=== PATIENT | female | born 1955 | race Caucasian/White ===

== ENCOUNTER 2018-11-28 21:16 | Inpatient (IN) ==
[2018-11-28] MEDS ORDERED: MORPHINE SULFATE 2 MG/1 ML IVP ONE (21:29)
[2018-11-28] MEDS ORDERED: Sodium Chloride 0.9% 1,000 ML PRIMARY IV ONE (21:29)
[2018-11-28 21:40] LABS: BASOPHILS # (AUTO) 0.02 10*3/UL; BASOPHILS % (AUTO) 0.1 % (0-1); EOSINOPHILS # (AUTO) 0.06 10*3/UL; EOSINOPHILS % (AUTO) 0.4 % (0-8); Hematocrit [HCT] 39.3 % (37.0-47.0); Hemoglobin [HGB] 12.9 g/dL (12.0-16.0); LYMPHOCYTES # (AUTO) 1.72 10*3/uL; MEAN CORPUSCULAR HGB CONC 32.8 g/dL (33-37); MEAN CORPUSCULAR VOLUME 97.5 FL (81-99); MEAN PLATELET VOLUME 9.9 FL (7.4-12.2); MONOCYTES # (AUTO) 0.58 10*3/UL (0.3-0.8); MONOCYTES % (AUTO) 4.1 % (5-15); NEUTROPHILS # (AUTO) 11.68 10*3/UL; NEUTROPHILS % (AUTO) 82.8 % (50-80); RED BLOOD COUNT 4.03 10^6/uL (4.20-5.40)
[2018-11-28 21:46] LABS: BUN/CREATININE RATIO 30.9 (6-20); SERUM ALBUMIN 4.5 g/dL (3.5-4.8)
[2018-11-28 21:48] LABS: PLATELET MORPHOLOGY COMMENT NORMAL MORPHOLOGY (NORM); RBC MORPHOLOGY COMMENT NORMAL MORPHOLOGY (NORM); WBC MORPHOLOGY COMMENT NORMAL MORPHOLOGY (NORM)
[2018-11-28] MEDS ORDERED: KETOROLAC 15 MG/1 ML VIAL IVP ONE (21:49)
--- NOTE | 2018-11-28 23:06 | DI ---
EXAM: XR Left Hip With Pelvis When Performed, 2 or 3 Views CLINICAL HISTORY: Trauma TECHNIQUE: Two or three views of the left hip, with pelvis when performed. COMPARISON: No relevant prior studies available. FINDINGS: Bones/joints: Mildly displaced mid left femoral neck fracture identified with mild angulation. The left femoral head remains in the acetabulum. The pelvic bones otherwise demonstrate no acute traumatic injury. Soft tissues: Unremarkable. IMPRESSION: Mildly displaced mid left femoral neck fracture identified with mild angulation. The femoral head remains in the acetabulum.
--- NOTE | 2018-11-28 23:07 | DI ---
EXAM: XR Left Femur, 2 Views CLINICAL HISTORY: Trauma TECHNIQUE: Frontal and lateral views of the left femur. COMPARISON: No relevant prior studies available. FINDINGS: Bones/joints: Mildly displaced mid left femoral neck fracture. The left femoral head remains in the acetabulum. The distal femur appears intact. No significant degenerative changes. No dislocation. Soft tissues: Unremarkable. IMPRESSION: Mildly displaced mid left femoral neck fracture. Otherwise negative.
[2018-11-28] MEDS ORDERED: HYDROcodone-APAP 5 MG -325 MG TABLET PO PRN (23:28)
[2018-11-28] MEDS ORDERED: DOCUSATE 100 MG CAPSULE PO PRN (23:28)
[2018-11-28] MEDS ORDERED: CALCIUM CARBONATE 500 MG (TUMS) CHEWABLE TABLET PO PRN (23:28)
[2018-11-28] MEDS ORDERED: ONDANSETRON 4 MG/2 ML VIAL IVP PRN (23:28)
[2018-11-28] MEDS ORDERED: ACETAMINOPHEN 325 MG TABLET PO PRN (23:28)
[2018-11-28] MEDS ORDERED: LIDOCAINE W/ SODIUM BICARB 0.5 ML SYR SUBD PRN (23:28)
[2018-11-29] MEDS: HYDROmorphone 2 MG/1 ML IVP PRN ×2 (00:17→08:22)
[2018-11-29] MEDS: Lactated Ringers 1,000 ML PRIMARY IV SCH ×4 (00:18→22:02)
--- NOTE | 2018-11-29 00:21 | PDOC ---
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 She states that she was on her barstool eating her dinner and she thinks that a screw was out of the barstool, and she fell down off the barstool and landed on her left hip and had immediate pain. She's not had this happen before. She came in by ambulance and had morphine on the way which controlled her pain to some degree, but she is in pain now. She was found to have a left hip fracture. It was a closed fracture. She denied any chest pain, shortness breath, or vomiting with these symptoms. She did have some nausea but stated Zofran did help. Patient states to me that she has no history of congestive heart failure, kidney problems, stroke, or anginal symptoms of chest pain or shortness of breath with exertion. She had a pacemaker placed as mentioned above. She states it was last interrogated in August and it was functioning normally. Her vitamin D level was last checked in 2013 on labs here, and it was low normal at that time so I will repeat that tomorrow morning. Orthopedics has been notified of the patient will see her in the morning. She did not lose consciousness with the fall or hit her head. Past Medical History Medical History: 1. Aortic aneurysm, ascending, has been stable in terms of size per patient. 2. Depression. 3. Osteopenia. 4. History of smoking, is on nicotine gum. 5. Recurrent acute sinusitis. 6. Sick sinus syndrome status post pacemaker ). 7. Primary osteoarthritis of both hands. 8. Patellar fracture, treated nonsurgically Surgical History: 1. Sinus surgery. 2. Status post cardiac pacemaker procedure (10/22/14). 3. Cholecystectomy. 4. Hysterectomy. 5. History of . 6. Tonsillectomy. 7. Bilateral varicose vein removal. 8. Right ankle hardware removal Pertinent Family History: Mother of multiple sclerosis. She states her father due to his "daily habits" Past Social History: Former smoker. Uses nicotine gum. Does not drink alcohol. . Has 2 adopted children and one biologic child that she describes all as healthy. 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 Tobacco Use: Former Smoker In the Past 12 Months, Have Used or Abuse Any of the Following Substance: None Alcohol Use: None Medication / Allergies Home Medications: Home Medications Medication Instructions Recorded Confirmed Type Calcium Carb/D3/Magnesium/Zinc [Sv 1 tbs PO QD tab 05/03/14 11/28/18 History Dsfzopi-Zse-Fjez-Vit D Cplt] Epinephrine [Epipen 2-Dick] 0.3 ml IM ONCE #2 unit 07/02/14 11/28/18 History Fluticasone Propionate [Flonase 2 spr NETTA DAILY PRN #1 bottle 02/18/15 11/28/18 History Allergy Relief] Imiquimod [Aldara] 1 applic TOPICAL PRN #15 pkg 01/17/16 11/28/18 History Ibuprofen [Motrin] 800 mg PO Q8H PRN #60 tab 03/09/16 11/28/18 Rx atenolol 25 mg tablet 25 mg PO BID tab 07/09/17 11/28/18 History estradiol 10 mcg vaginal tablet 10 mcg VAGINAL 2XW #24 tab 04/08/18 11/28/18 Rx bupropion HCl XL 150 mg 24 hr 150 mg PO QAM #30 tab 07/11/18 11/28/18 Rx tablet, extended release zaleplon 5 mg capsule 5 mg PO QHS PRN #90 tab 07/11/18 11/28/18 Rx pantoprazole 40 mg tablet,delayed 40 mg PO QDAY #30 tab 09/21/18 11/28/18 Rx release fluoxetine 20 mg capsule 20 mg PO QD #90 cap 09/29/18 11/28/18 Rx fluoxetine 40 mg capsule 40 mg PO DAILY #90 cap 09/29/18 11/28/18 Rx Allergies/Adverse Reactions: Allergies Allergy/AdvReac Type Severity Reaction Status Date / Time banana [Banana] Allergy Severe lips turn Verified 11/28/18 21:17 numb Cephalosporins Allergy Severe ANAPHLAXIS Verified 11/28/18 21:18 latex Allergy Severe RASH Verified 11/28/18 21:18 Penicillins Allergy Severe ANAPHLAXIS Verified 11/28/18 21:18 venom-honey bee Allergy Severe NOT Verified 11/28/18 21:18 APPLICABLE adhesive Allergy Intermediate RASH Verified 11/28/18 21:18 codeine Allergy Intermediate NOT Verified 11/28/18 21:18 APPLICABLE hydroxyzine HCl [From Atarax] Allergy Intermediate HIVES Verified 11/28/18 21:18 Review of Systems - Review of Systems All Systems: Reviewed & No Additional Complaints Except as Stated (I did a 12 point review systems and it was negative other than that discussed below and in the history of present illness.) - Genitourinary Genitourinary: REPORTS: Other (Patient states that it is common for her to get urinary tract infections after catheterization.) Exam - Vitals Vital Signs: Vital Signs Temperature 97.6 F Pulse Rate [Pulse Oximeter] 66 Pulse Rate 68 Respiratory Rate 18 Blood Pressure [Left Arm] 145/89 Blood Pressure 145/89 Pulse Ox 96 Oxygen Delivery Method Nasal Cannula Height 5 ft 4 in Weight 140 lb - General General Appearance: No Acute Distress, Cooperative - Head Head Exam: Normal Inspection, Normocephalic, Atraumatic - Eye Eye Exam: POSITIVE: Normal Appearance, EOMI, No Scleral Icterus - ENT ENT Exam: POSITIVE: Mucous Membranes Moist - Neck Neck Exam: Normal Inspection, No Tenderness, No Lymphadenopathy, No Thyromegaly, JVP is not Raised - Respiratory Respiratory Exam: POSITIVE: Clear to Auscultation - Bilaterally, Breathing Non Labored - Cardiovascular Cardiovascular Exam: POSITIVE: RRR, No Murmur, No Clicks, No Gallops, No Rubs, No JVD - GI/Abdominal GI/Abdominal Exam: POSITIVE: Normal Bowel Sounds, Non Tender, Non Distended, Soft - Rectal Rectal Exam: POSITIVE: Deferred - External Exam: POSITIVE: Deferred Exam: POSITIVE: Deferred - Extremities Extremities Exam: POSITIVE: No Clubbing Present, No Edema Present, No Cyanosis Present - Neurological Neurological Exam: POSITIVE: Alert, Oriented x 3, No Facial Droop, Speech Intact / Clear - Psychiatric Psychiatric Exam: POSITIVE: Normal Affect, Normal Mood Results - Labs CBC and BMP: 11/28/18 20:43 11/28/18 20:43 Additional Lab Results: Laboratory Results 11/28/18 11/28/18 11/28/18 20:43 20:43 20:43 WBC 14.11 H RBC 4.03 L Hgb 12.9 Hct 39.3 MCV 97.5 MCH 32.0 H MCHC 32.8 L RDW Std Deviation 44.9 RDW Coeff of Juan 12.7 Plt Count 264 MPV 9.9 Immature Gran % (Auto) 0.4 Neut % (Auto) 82.8 H Lymph % (Auto) 12.2 [place] % (Auto) 4.1 L Eos % (Auto) 0.4 Baso % (Auto) 0.1 Immature Gran # (Auto) 0.05 Neut # (Auto) 11.68 Lymph # (Auto) 1.72 [place] # (Auto) 0.58 Eos # (Auto) 0.06 Baso # (Auto) 0.02 WBC Morphology Comment Normal morphology Plt Morphology Comment Normal morphology RBC Morph Comment Normal morphology PT 10.5 INR 1.03 Sodium 142 Potassium 3.9 Chloride 106 Carbon Dioxide 26 Anion Gap 10 BUN 34 H Creatinine 1.1 Estimated GFR 50 BUN/Creatinine Ratio 30.90 H Glucose 106 Calculated Osmolality 301.0 H Calcium 10.6 Total Bilirubin 0.2 L AST 38 ALT 34 Alkaline Phosphatase 126 Total Protein 7.5 Albumin 4.5 Globulin 3.0 Albumin/Globulin Ratio 1.50 - EKG Data When Compared to Previous EKG(s) There Are: Other (I have ordered an EKG which is pending) - Imaging Status: Image Reviewed by Me (I reviewed the femur and pelvis films. There is a hip fracture on the left side subfemoral head. (Femoral neck fracture)) Assessment and Plan - Patient Problems (1) Closed left hip fracture Current Visit: Yes Status: Acute Code(s): S72.002A - Fracture of unspecified part of neck of left femur, initial encounter for closed fracture Qualifiers: Encounter type: initial encounter Qualified Code(s): S72.002A - Fracture of unspecified part of neck of left femur, initial encounter for closed fracture (2) Status post placement of cardiac pacemaker Current Visit: Yes Status: Acute Code(s): Z95.0 - Presence of cardiac pacemaker (3) Hypertension Current Visit: Yes Status: Acute Code(s): I10 - Essential (primary) hypertension Qualifiers: Hypertension type: essential hypertension Qualified Code(s): I10 - Essential (primary) hypertension (4) Nicotine dependence Current Visit: Yes Status: Acute Code(s): F17.200 - Nicotine dependence, unspecified, uncomplicated Qualifiers: Nicotine product type: other Substance use status: uncomplicated Qualified Code(s): F17.290 - Nicotine dependence, other tobacco product, uncomplicated (5) Aortic aneurysm Current Visit: No Status: Chronic Qualifiers: Aortic location: thoracic aorta Presence of rupture: without rupture Qualified Code(s): I71.2 - Thoracic aortic aneurysm, without rupture - Assessment / Plan Additional Assessment/Plan Details: Admit the patient Orthopedic consultation for hip fracture. From on AHA/ACC non-vascular perioperative guidelines for surgical clearance perspective, I think the patient should proceed to the operating room with postoperative risk stratification. She does not have any "red flag" findings to suggest anginal symptoms, renal failure, stroke, or congestive heart failure. Her creatinine is at the upper limit of normal, probably consistent with stage II chronic kidney disease. And additional note is that the patient meets 4 metabolic equivalents. I do have an echocardiogram pending. Pain control with parenteral medications such as Dilaudid and hydrocodone. Antiemetics. Nothing by mouth at midnight. Eventual DVT prophylaxis postoperatively, 28-35 days. Lovenox or Xarelto could be potential options. We discussed objectives from hospitalist side which are to try to prevent urinary tract infection, pneumonia, skin breakdown, malnutrition, and DVT/PE, but I did not guarantee that these outcomes could be prevented at 100% but I did guarantee that we would try to do our best. PT and OT. Vitamin D level later this a.m. MRSA screening Chiang catheter due to immobility and hopefully get that out 48 hours postoperatively if possible Patient will need case management to determine rehabilitation options such a swing bed versus acute rehabilitation versus other. Given her age, knowledge of the healthcare system, I suspect this could be done as an outpatient, but we will see how she does postoperatively. Type and screen for 2 units packed red blood cells CODE STATUS is discussed, patient is full code Given 2 antidepressants, I did discuss with the patient potential for serotonin syndrome, albeit low, some increased risk. I discussed the above plan with the patient and family and they all agree to proceed with the plan abovethey all agree to proceed with the plan above
--- NOTE | 2018-11-29 00:49 | EKG ---
[address] [address] Measurements Intervals [place] Rate: 66 P: 66 DE: 186 QRS: 88 QRSD: 94 T: 75 QT: 426 QTc: 439 Interpretive Statements SINUS RHYTHM Compared to ECG 11/05/2014 16:31:41 Atrial-paced complex(es) or rhythm no longer present Electronically Signed On 11-29-18 08:26:56 MDT by Anthony Palmer [email or web address]
--- NOTE | 2018-11-29 04:34 | PDOC ---
Lower Extremity Injury HPI - General Chief Complaint: Lower Extremity Problem/Injury Stated Complaint: fell off bar stool earlier today - left leg pain Date Seen by Provider: 11/28/18 Time Seen by Provider: 21:20 Source: POSITIVE: Patient, EMS Exam Limitations: POSITIVE: No limitations Nurse's Notes Reviewed & Considered: Yes EMS Report Reviewed & Considered: Verbal - History of Present Illness Initial Comments: The patient is a 63-year-old female. 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 The seat of the barstool tilted and she slid off the stool onto the floor. She struck the lateral aspect of her left hip. Her granddaughter, who is with her at the time, helped her to the sofa. She has had pain to the lateral aspect of the hip since and has not been able to bear any weight. She called the ambulance and ambulance brought her here. Patient is not on any blood thinners. She does have a history of a cardiac pacemaker and states she has a history of an ascending aortic aneurysm. History of GERD. Patient has no paresthesia or sensory or motor symptoms. She complains of some discomfort also to the lateral and medial aspects of the left knee. 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) Severity: Moderate Quality: REPORTS: "Pain" Location at Time of Onset: REPORTS: Home Context of Injury: REPORTS: Fall, Direct Blow Location of Injury: REPORTS: Knee (L), Other (Left hip) Modifying Factors: improves with: Walking (Unable to bear weight), Movement Associated Symptoms: REPORTS: Unable to Bear Weight Any Prior Injuries Related to Current Complaint?: No - Patient Home Medications Home Medications: Home Medications Calcium Carb/D3/Magnesium/Zinc [Sv Jvqqdcp-Mki-Jtut-Vit D Cplt] 1 tbs PO QD tab 05/03/14 Epinephrine [Epipen 2-Dick] 0.3 ml IM ONCE #2 unit 07/02/14 Fluticasone Propionate [Flonase Allergy Relief] 2 spr NETTA DAILY PRN #1 bottle 02/18/15 Imiquimod [Aldara] 1 applic TOPICAL PRN #15 pkg 01/17/16 Ibuprofen [Motrin] 800 mg PO Q8H PRN #60 tab 03/09/16 atenolol 25 mg tablet 25 mg PO BID tab 07/09/17 estradiol 10 mcg vaginal tablet 10 mcg VAGINAL 2XW #24 tab 04/08/18 bupropion HCl XL 150 mg 24 hr tablet, extended release 150 mg PO QAM #30 tab 07/11/18 zaleplon 5 mg capsule 5 mg PO QHS PRN #90 tab 07/11/18 pantoprazole 40 mg tablet,delayed release 40 mg PO QDAY #30 tab 09/21/18 fluoxetine 20 mg capsule 20 mg PO QD #90 cap 09/29/18 fluoxetine 40 mg capsule 40 mg PO DAILY #90 cap 09/29/18 - Patient Allergies Allergies/Adverse Reactions: Allergies Allergy/AdvReac Type Severity Reaction Status Date / Time banana [Banana] Allergy Severe lips turn Verified 11/28/18 21:17 numb Cephalosporins Allergy Severe ANAPHLAXIS Verified 11/28/18 21:18 latex Allergy Severe RASH Verified 11/28/18 21:18 Penicillins Allergy Severe ANAPHLAXIS Verified 11/28/18 21:18 venom-honey bee Allergy Severe NOT Verified 11/28/18 21:18 APPLICABLE adhesive Allergy Intermediate RASH Verified 11/28/18 21:18 codeine Allergy Intermediate NOT Verified 11/28/18 21:18 APPLICABLE hydroxyzine HCl [From Atarax] Allergy Intermediate HIVES Verified 11/28/18 21:18 Past Medical History - heen HEENT History: Other (please comment) Additional HEENT History: RECURRENT ACUTE SINUSITIS, WEARS GLASSES Cardiovascular History: Pacemaker, Aneurysm Additional Cardiovasular History: aneyrysm stable, pace maker working Respiratory History: Other (please comment) Additional Respiratory History: ALLERGIC RHINITIS Gastrointestinal History: Denies History Genitourinary History: Incontinence Endocrine History: Hypothyroidism Additional Endocrine History: seeing for low thyroid Musculoskeletal History: Osteoporosis Prosthesis or Implant: Yes (pacemaker) Additional Musculoskeletal History: HX OF RIGHT ANKLE FX Neurological History: Denies History Blood Disorders: Denies History Psychiatric History: Depression, Anxiety Disorders History of Sexually Transmitted Diseases: No Female Reproductive History: Hysterectomy Obstetrical History: Delivery Cancer History: Denies History In Past Year Been Physically Harmed or Verbally Threatened: No History of MDRO: No History of Other Communicable Diseases: No Tobacco Use: Former Smoker Alcohol Use: Rarely In the Past 12 Months, Have Used or Abuse Any Substance: None Previous Surgical History: Yes Type / Date of Surgery: /PARTIAL HYSTERECTOMY/VARICOSE VEIN REMOVAL, RIGHT LEG/TURBINATE & SEPTOPLASTY 02/2013/TONSILS, RIGHT ANKLE ORIF, CHOLECYSTECTOMY, DUAL LUMEN PACEMAKER PLACEMENT Anesthesia Reactions: Yes (PONV) Malignant Hyperthermia: No Significant Family History: Other (please comment) Additional Family History: ALCOHOLISM,BROTHER; CVA, COPD, CAD, HTN, KIDNEY DISEASE, FATHER ( OF RENAL FAILURE), GRANDMOTHERS, DM; MOTHER ( AGE 43 OF COMPLICATIONS OF MULTIPLE SCLEROSIS); FATHER=PRIMARY MALIGNANT. NEOPLASM OF LARYNGEAL CARTILAGE Past Medical History Reviewed: Reviewed - No Changes ROS - Limitations ROS Limitations: No Limitations Constitution: REPORTS: Denies Symptoms Cardiovascular: REPORTS: Denies Cardiac Symptoms Respiratory: REPORTS: Denies Resp Symptoms Neurological: REPORTS: Denies Neuro Symptoms Gastrointestinal: REPORTS: Denies GI Symptoms Endocrine: REPORTS: Denies Symptoms Musculoskeletal: REPORTS: Joint Pain (Left hip and knee) Genitourinary: REPORTS: Denies Symptoms Eyes: REPORTS: Denies Symptoms ENT: REPORTS: Denies Symptoms Skin: REPORTS: Denies Skin Symptoms Lympathic: REPORTS: Denies Lympathic Symptoms Immunologic: POSITIVE: Denies Symptoms Psychiatric: POSITIVE: Denies Psych Symptoms Lower Ext Complaint Exam - General Appearance General Appearance: POSITIVE: Alert, Cooperative, No Acute Distress. NEGATIVE: No Evidence of Trauma - Extremities Lower Extremity: POSITIVE: Normal Color, Normal Temperature, Skin Intact, No Joint Swelling, No Evidence of Ischemia, Bony Tenderness (Patient has tenderness on palpation lateral aspect of left hip. Also complains of some discomfort on palpation lateral and medial aspects of left knee), Limited ROM (Patient unable to move left leg at the hip and unable to raise or heel of her left leg off the gurney), Hip Pain on Leg Movement, See Diagram. NEGATIVE: Normal Inspection, Non-Tender, Normal ROM, Swelling, Ecchymosis, Erythema, Deformity, Pulse Deficit, Laxity of Ligaments, Joint Effusion Lower Extremity Ligament: NEGATIVE: Pain on Anterior Drawer, Pain on Posterior Drawer, Laxity on Anterior Drawer, Laxity w/Posterior Drawer, Pain on Medial Stress, Pain on Lateral Stress, Laxity on Medial Stress, Laxity on Lateral Stress, Other Gait: POSITIVE: Unable to Bear Weight Neurovascular/Tendon: POSITIVE: Sensation Normal, Motor Normal, No Vascular Compromise Skin: POSITIVE: Warm, Dry - Neck / Back Neck/Back: POSITIVE: Normal Inspection, Non-Tender, Painless ROM - Respiratory / CVS Respiratory / CVS: POSITIVE: Chest Non Tender, No Ecchymosis, Breath Sounds Normal, No Respiratory Distress, Heart Sounds Normal, Regular Rate/Rhythm Peripheral Pulses: Radial (R): 2+, Radial (L): 2+, Dorsalis-pedis (R): 2+, Dorsalis-pedis (L): 2+ - Abdomen Abdomen: Soft: (All Quadrants), Normal Bowel Sounds: (All Quadrants), Denies Tenderness: (All Quadrants), No Splenomegaly: (All Quadrants), No Hepatomegaly: (All Quadrants), No Guarding: (All Quadrants), No Rebound: (All Quadrants), No Palpable Pulse: (All Quadrants), No Palpabale Mass: (All Quadrants), No Distention: (All Quadrants), No Rigidity: (All Quadrants) Images - Complete Complete: 1 - Pain on palpation 2 - Mild pain on palpation Lower Ext Complaint Progress - Results Reviewed by me Xrays/CTs/US Reviewed by me: Yes Discussed with Radiologist: Yes Radiology Findings: X-ray left hip shows a minimally displaced fracture of the left femoral neck. X-ray left femur and knee radiographically normal Lab Results Reviewed by Me: Yes CBC and BMP: 11/28/18 20:43 11/28/18 20:43 Lab Results:: Laboratory Results 11/28/18 11/28/18 11/28/18 20:43 20:43 20:43 WBC 14.11 H RBC 4.03 L Hgb 12.9 Hct 39.3 MCV 97.5 MCH 32.0 H MCHC 32.8 L RDW Std Deviation 44.9 RDW Coeff of Juan 12.7 Plt Count 264 MPV 9.9 Immature Gran % (Auto) 0.4 Neut % (Auto) 82.8 H Lymph % (Auto) 12.2 [place] % (Auto) 4.1 L Eos % (Auto) 0.4 Baso % (Auto) 0.1 Immature Gran # (Auto) 0.05 Neut # (Auto) 11.68 Lymph # (Auto) 1.72 [place] # (Auto) 0.58 Eos # (Auto) 0.06 Baso # (Auto) 0.02 WBC Morphology Comment Normal morphology Plt Morphology Comment Normal morphology RBC Morph Comment Normal morphology PT 10.5 INR 1.03 Sodium 142 Potassium 3.9 Chloride 106 Carbon Dioxide 26 Anion Gap 10 BUN 34 H Creatinine 1.1 Estimated GFR 50 BUN/Creatinine Ratio 30.90 H Glucose 106 Calculated Osmolality 301.0 H Calcium 10.6 Total Bilirubin 0.2 L AST 38 ALT 34 Alkaline Phosphatase 126 Total Protein 7.5 Albumin 4.5 Globulin 3.0 Albumin/Globulin Ratio 1.50 - Patient's Progress Pain Medication Addressed: POSITIVE: Yes (Ketorolac 15 mg IV) School/Work Release Addressed: POSITIVE: Not Applicable Re-Examine Time:: 23:50 Re-Examine Comment: Results of x-ray discussed with patient and family. Advised she has a hip fracture. Case discussed with orthopedist and hospitalist and patient admitted for further evaluation and treatment. Status: POSITIVE: Unchanged - Consult Consult (If Yes, Name of Consulting MD & Time Called): Yes (Dr. Joyner, orthopedist, 2300; Dr. Jacob, hospitalist, and [id number]) Consulting MD will see pt:: POSITIVE: [facility] [place] Admit Counseled: POSITIVE: Patient, Family, RE: Lab Results, RE: Radiology Results, RE: DX, RE: Need for F/U Patient Care Time - Estimated PCT Patient Care Time (In Minutes): 50 Vital Signs - Recent Vital Signs Vital Signs: Vital Signs (Last 8 hours) Temp Pulse Pulse Resp BP BP Pulse Ox 11/28/18 23:32 97.6 F 68 18 145/89 96 11/28/18 21:29 66 17 145/89 99 - VS Reviewed Vital Signs Reviewed: Yes Discharge Clinical Impression: Hip fracture Discharge Disposition: Admit to Inpatient Condition: Fair Date Decision to Admit to Inpatient: 11/28/18 Time Decision to Admit to Inpatient: 22:50
[2018-11-29 05:55] LABS: BASOPHILS # (AUTO) 0.02 10*3/UL; BASOPHILS % (AUTO) 0.2 % (0-1); EOSINOPHILS # (AUTO) 0.23 10*3/UL; EOSINOPHILS % (AUTO) 2.3 % (0-8); Hematocrit [HCT] 32.3 % (37.0-47.0); Hemoglobin [HGB] 10.7 g/dL (12.0-16.0); LYMPHOCYTES # (AUTO) 1.77 10*3/uL; MEAN CORPUSCULAR HEMOGLOBIN 33.1 PG (27-31); MEAN CORPUSCULAR HGB CONC 33.1 g/dL (33-37); MEAN PLATELET VOLUME 9.6 FL (7.4-12.2); MONOCYTES # (AUTO) 0.47 10*3/UL (0.3-0.8); MONOCYTES % (AUTO) 4.8 % (5-15); NEUTROPHILS # (AUTO) 7.35 10*3/UL; NEUTROPHILS % (AUTO) 74.6 % (50-80); RED BLOOD COUNT 3.23 10^6/uL (4.20-5.40)
[2018-11-29 05:57] LABS: PLATELET MORPHOLOGY COMMENT NORMAL MORPHOLOGY (NORM); RBC MORPHOLOGY COMMENT NORMAL MORPHOLOGY (NORM); WBC MORPHOLOGY COMMENT NORMAL MORPHOLOGY (NORM)
[2018-11-29] MEDS ORDERED: PANTOPRAZOLE 40 MG TABLET PO SCH (07:00)
--- NOTE | 2018-11-29 07:50 | CONSULT ---
Consult Note - Consult Consult Date: 11/29/18 Reason for Consult: PreOp Consulation : Ortho Requesting Physician: Dr Robins Primary Care Provider: Cherri Aldrich MS, SUPERVISOR OF [employer]EARCH - History of Present Illness History of Present Illness: Patient is a 63-year-old female who was eating supper slid off a barstool land ing on her left hip with immediate pain and discomfort she was helped to couch where she continued with lateral hip pain and was brought to the emergency room and found to have a hip fracture. No pain prior to the fall or injury. No history of arthritic changes to the hip previously. No loss of consciousness shortness of breath, chest pain, dizziness or other symptoms prior to the fall or after the fall. Past Medical History Medical History: 1. Aortic aneurysm, ascending, has been stable in terms of size per patient. 2. Depression. 3. Osteopenia. 4. History of smoking, is on nicotine gum. 5. Recurrent acute sinusitis. 6. Sick sinus syndrome status post pacemaker ). 7. Primary osteoarthritis of both hands. 8. Patellar fracture, treated nonsurgically Surgical History: 1. Sinus surgery. 2. Status post cardiac pacemaker procedure (10/22/14). 3. Cholecystectomy. 4. Hysterectomy. 5. History of . 6. Tonsillectomy. 7. Bilateral varicose vein removal. 8. Right ankle hardware removal Pertinent Family History: Mother of multiple sclerosis. She states her father due to his "daily habits" Past Social History: Former smoker. Uses nicotine gum. Does not drink alcohol. . Has 2 adopted children and one biologic child that she describes all as healthy. 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 Tobacco Use: Former Smoker In the Past 12 Months, Have Used or Abuse Any of the Following Substance: None Alcohol Use: None Medication / Allergies Home Medications: Home Medications Medication Instructions Recorded Confirmed Type Calcium Carb/D3/Magnesium/Zinc [Sv 1 tbs PO QD tab 05/03/14 11/28/18 History Cofxutr-Vvh-Cmmv-Vit D Cplt] Epinephrine [Epipen 2-Dcik] 0.3 ml IM ONCE #2 unit 07/02/14 11/28/18 History Fluticasone Propionate [Flonase 2 spr NETTA DAILY PRN #1 bottle 02/18/15 11/28/18 History Allergy Relief] Imiquimod [Aldara] 1 applic TOPICAL PRN #15 pkg 01/17/16 11/28/18 History Ibuprofen [Motrin] 800 mg PO Q8H PRN #60 tab 03/09/16 11/28/18 Rx atenolol 25 mg tablet 25 mg PO BID tab 07/09/17 11/28/18 History estradiol 10 mcg vaginal tablet 10 mcg VAGINAL 2XW #24 tab 04/08/18 11/28/18 Rx bupropion HCl XL 150 mg 24 hr 150 mg PO QAM #30 tab 07/11/18 11/28/18 Rx tablet, extended release zaleplon 5 mg capsule 5 mg PO QHS PRN #90 tab 07/11/18 11/28/18 Rx pantoprazole 40 mg tablet,delayed 40 mg PO QDAY #30 tab 09/21/18 11/28/18 Rx release fluoxetine 20 mg capsule 20 mg PO QD #90 cap 09/29/18 11/28/18 Rx fluoxetine 40 mg capsule 40 mg PO DAILY #90 cap 09/29/18 11/28/18 Rx Allergies/Adverse Reactions: Allergies Allergy/AdvReac Type Severity Reaction Status Date / Time banana [Banana] Allergy Severe lips turn Verified 11/28/18 21:17 numb Cephalosporins Allergy Severe ANAPHLAXIS Verified 11/28/18 21:18 latex Allergy Severe RASH Verified 11/28/18 21:18 Penicillins Allergy Severe ANAPHLAXIS Verified 11/28/18 21:18 venom-honey bee Allergy Severe NOT Verified 11/28/18 21:18 APPLICABLE adhesive Allergy Intermediate RASH Verified 11/28/18 21:18 codeine Allergy Intermediate NOT Verified 11/28/18 21:18 APPLICABLE hydroxyzine HCl [From Atarax] Allergy Intermediate HIVES Verified 11/28/18 21:18 Exam - - Exam: Examination shows a patient with no significant internal rotation of the lower extremity. There are no significant or open wounds or abrasions or other changes. Motor and sensory exam is nonfocal good pulses and brisk refill. Radiograph show impacted femoral neck fracture on the lateral anatomically aligned significantly impacted on the AP plane. Laboratory Results 11/28/18 11/28/18 11/28/18 20:43 20:43 20:43 WBC 14.11 H RBC 4.03 L Hgb 12.9 Hct 39.3 MCV 97.5 MCH 32.0 H MCHC 32.8 L RDW Std Deviation 44.9 RDW Coeff of Juan 12.7 Plt Count 264 MPV 9.9 Immature Gran % (Auto) 0.4 Neut % (Auto) 82.8 H Lymph % (Auto) 12.2 Moffat % (Auto) 4.1 L Eos % (Auto) 0.4 Baso % (Auto) 0.1 Immature Gran # (Auto) 0.05 Neut # (Auto) 11.68 Lymph # (Auto) 1.72 Moffat # (Auto) 0.58 Eos # (Auto) 0.06 Baso # (Auto) 0.02 WBC Morphology Comment Normal morphology Plt Morphology Comment Normal morphology RBC Morph Comment Normal morphology PT 10.5 INR 1.03 Sodium 142 Potassium 3.9 Chloride 106 Carbon Dioxide 26 Anion Gap 10 BUN 34 H Creatinine 1.1 Estimated GFR 50 BUN/Creatinine Ratio 30.90 H Glucose 106 Calculated Osmolality 301.0 H Calcium 10.6 Total Bilirubin 0.2 L AST 38 ALT 34 Alkaline Phosphatase 126 Total Protein 7.5 Albumin 4.5 Globulin 3.0 Albumin/Globulin Ratio 1.50 Vitamin D 25-Hydroxy Blood Type Antibody Screen 11/29/18 11/29/18 11/29/18 01:00 05:35 05:35 WBC 9.85 RBC 3.23 L Hgb 10.7 L Hct 32.3 L MCV 100.0 H MCH 33.1 H MCHC 33.1 RDW Std Deviation 45.5 RDW Coeff of Juan 13.0 Plt Count 190 MPV 9.6 Immature Gran % (Auto) 0.1 Neut % (Auto) 74.6 Lymph % (Auto) 18.0 Moffat % (Auto) 4.8 L Eos % (Auto) 2.3 Baso % (Auto) 0.2 Immature Gran # (Auto) 0.01 Neut # (Auto) 7.35 Lymph # (Auto) 1.77 Moffat # (Auto) 0.47 Eos # (Auto) 0.23 Baso # (Auto) 0.02 WBC Morphology Comment Normal morphology Plt Morphology Comment Normal morphology RBC Morph Comment Normal morphology PT INR Sodium 141 Potassium 4.3 Chloride 109 Carbon Dioxide 29 Anion Gap 3 L BUN 35 H Creatinine 1.0 Estimated GFR 56 BUN/Creatinine Ratio 35.00 H Glucose 99 Calculated Osmolality 299.0 H Calcium 9.5 Total Bilirubin AST ALT Alkaline Phosphatase Total Protein Albumin Globulin Albumin/Globulin Ratio Vitamin D 25-Hydroxy Blood Type A POSITIVE Antibody Screen Negative 11/29/18 05:35 WBC RBC Hgb Hct MCV MCH MCHC RDW Std Deviation RDW Coeff of Juan Plt Count MPV Immature Gran % (Auto) Neut % (Auto) Lymph % (Auto) Moffat % (Auto) Eos % (Auto) Baso % (Auto) Immature Gran # (Auto) Neut # (Auto) Lymph # (Auto) Moffat # (Auto) Eos # (Auto) Baso # (Auto) WBC Morphology Comment Plt Morphology Comment RBC Morph Comment PT INR Sodium Potassium Chloride Carbon Dioxide Anion Gap BUN Creatinine Estimated GFR BUN/Creatinine Ratio Glucose Calculated Osmolality Calcium Total Bilirubin AST ALT Alkaline Phosphatase Total Protein Albumin Globulin Albumin/Globulin Ratio Vitamin D 25-Hydroxy 31.8 Blood Type Antibody Screen Vital Signs (24 hrs) 11/28/18 21:29 11/28/18 23:32 11/29/18 00:51 Temperature 97.6 F Pulse Rate 68 Pulse Rate [Pulse Oximeter] 66 Respiratory Rate 17 18 Blood Pressure 145/89 Blood Pressure [Left Arm] 145/89 Pulse Ox 99 96 95 11/29/18 04:00 11/29/18 07:21 Temperature 97.6 F 97.9 F Pulse Rate Pulse Rate [Pulse Oximeter] 61 62 Respiratory Rate 17 17 Blood Pressure Blood Pressure [Left Arm] 117/79 106/72 Pulse Ox 97 95 - Vitals Vital Signs: Vital Signs Temperature 97.9 F Temperature Source Temporal Artery Scan Pulse Rate [Pulse Oximeter] 62 Pulse Rate 68 Respiratory Rate 17 Blood Pressure [Left Arm] 106/72 Blood Pressure 145/89 Pulse Ox 95 Oxygen Flow Rate 3 Oxygen Delivery Method Nasal Cannula Height 5 ft 4 in Weight 69.4 kg Results - Labs CBC and BMP: 11/29/18 05:35 11/29/18 05:35 Assessment and Plan - Assessment / Plan Additional Assessment/Plan Details: Impression: Left femoral neck impacted fracture Anemia Plan: We discussed the patient's current condition and clinical findings as it perta ins to the current situation. Surgical versus nonsurgical options risks and benefits were discussed and reviewed. Options moving forward include but are not limited to continued choice to live with their current condition; evaluate their current condition further with imaging studies and/or diagnostic testing, etc.; treat problem/problems with surgical versus nonsurgical methods. The patient demonstrates a clear understanding of our discussion. All questions were answered. Surgical versus nonsurgical options risks and benefits were Discussed and reviewed. Risks include but are not limited to bleeding, infection, neurovascular damage, wound problems, deep vein thromboses, pulmonary embolism, need for further surgery, and loss of life and limb. Certainly any surgical procedure may not improve symptoms and potentially could makes symptoms worse. There are no guarantees implied with the discussion of surgical treatment. All questions were answered and the patient wishes to proceed with surgical treatment. I will proceed with operative 10 is pending discussed risks and benefits does have a fair amount of valgus angulation but is anatomically reduced in the AP and lateral plane. I think percutaneous pinning is a reasonable option to reduce chances as we have discussed with avascular necrosis failure further compression a need for more definitive surgery also risks of fracture with pinning the subtrochanteric region. He had normal risks always include infection and neurovascular issues and need for further surgery. Proceed along these lines percutaneous pinning. Because of the shortening with the impaction some degree of hip biomechanics alterations are likely to occur which can affect gait and sometimes of symptomatology. She understands and proceed along these lines.
[2018-11-29] MEDS ORDERED: LIDOCAINE HCL 2 % 10 ML JELLY URO-JECT TOPICAL PRN (08:41)
[2018-11-29] MEDS ORDERED: FLUOXETINE HCL 40 MG PO SCH (09:00)
[2018-11-29] MEDS ORDERED: buPROPion XL Tab 150 MG TAB PO SCH (09:00)
[2018-11-29] MEDS ORDERED: FLUoxetine 20 MG CAPSULE PO SCH (09:00)
[2018-11-29] MEDS ORDERED: ATENOLOL 25 MG TABLET PO SCH (09:00)
[2018-11-29] MEDS ORDERED: LIDOCAINE W/ SODIUM BICARB 0.5 ML SYR SUBD PRN (11:49)
[2018-11-29] MEDS ORDERED: HYDROmorphone 2 MG/1 ML IVP PRN (11:49)
[2018-11-29] MEDS ORDERED: fentaNYL Inj 100 MCG/2 ML VIAL IVP PRN (11:49)
[2018-11-29] MEDS ORDERED: Prochlorperazine Edisylate Inj 10mg/2ml vial IVP PRN (11:49)
[2018-11-29] MEDS ORDERED: ONDANSETRON 4 MG/2 ML VIAL IVP PRN ×2 (11:49→17:15)
[2018-11-29] MEDS ORDERED: ATROPINE SULFATE 0.4 MG/1 ML VIAL IVP PRN (11:49)
[2018-11-29] MEDS ORDERED: Ondansetron ODT Tab 8 MG TAB PO PRN (11:49)
--- NOTE | 2018-11-29 11:51 | CRNA.PROGR ---
Anesthesia Time - Procedure/Recovery Time Start Date: 11/29/18 End Date: 11/29/18 Anesthesia : Time In: 15:05 Anesthesia : Time Out: 16:19 Anesthesia : Total Time: 74 - Block Time Start Date: 11/29/18 End Date: 11/29/18 PreOp Block : Time In: 14:25 PreOp Block : Time Out: 14:40 PreOp Block : Total Time: 15 - Total Anesthesia Time Total Anesthesia Time (minutes): 89 - Other Weight: 69.4 kg Height: 5 ft 4 in Body Mass Index (BMI): 26.2 Physical Status: P3 Anesthesia Type: Spinal Block
[2018-11-29] MEDS ORDERED: Lactated Ringers 1,000 ML PRIMARY IV SCH (12:00)
[2018-11-29] MEDS ORDERED: PROPOFOL 10 MG/1 ML (200 MG/20 ML) VIAL IV ONE (12:18)
[2018-11-29] MEDS ORDERED: MIDAZOLAM HCL 2 MG/2 ML VIAL ONE (12:19)
[2018-11-29] MEDS ORDERED: fentaNYL Inj 100 MCG/2 ML VIAL ONE (12:19)
[2018-11-29] MEDS ORDERED: Clindamycin 900mg (Premix) 900 MG/50 ML BAG IV ONE (12:42)
[2018-11-29] MEDS ORDERED: Lactated Ringers 1,000 ML PRIMARY IV ONE (14:22)
--- NOTE | 2018-11-29 14:55 | CRNA.PROCE ---
Central Neuraxis Block Placehi - - Safety Measures: Time Out Taken, Site Verified - - Type of Block: Subarachnoid Reason for Block: Surgical Moniters Used During Block: EKG, NIBP Sedation Used - Enter Amount Used in Comment Field: Midazolam (mg): Yes (2) Positioning: Lateral Skin Prep Used: ChloroPrep (Twice) Draped: Yes Skin Infiltration - Enter Amount Used in Comment Field: 1% Xylocaine (mL): Yes (1.0) Introducer User: None Spinal Needle Used: 22 Lucita 80 mm (2nd, atraumatic pass. Clear free flow csf.) Local Anesthetic - Enter Amount Used in Comment Field: 0.75 % Bupivacaine with Dextrose (ml): Yes (2ml) Additive Used - Enter Amount Used in Comment Field: Epinephrine 1:1000 Needle Rinse (mL): Yes (needle hub rinse) - - Additional Details: Left lateral, left side down for 15 min while preparing to go to operating room. Anesthesia Time - Other Weight: 69.4 kg Height: 5 ft 4 in Body Mass Index (BMI): 26.2
[2018-11-29] MEDS ORDERED: ONDANSETRON 4 MG/2 ML VIAL ONE (15:24)
[2018-11-29] MEDS ORDERED: DEXAMETHASONE PF 10 MG/1 ML VIAL ONE (15:25)
[2018-11-29] MEDS ORDERED: Sodium Chloride 0.9% vial 20 ML ONE (15:42)
[2018-11-29] MEDS ORDERED: BACITRACIN 50,000 UNIT VIAL IRRIG ONE (15:43)
[2018-11-29] MEDS ORDERED: BUPivacaine Liposome/PF (Exparel) Inj 20ml vial INFIL ONE (15:53)
--- NOTE | 2018-11-29 16:23 | ORTHO.OP ---
- - -: See Dictated Operative Report Procedure Codes - Hip Procedures Primary Hip Procedure: Other CPT Code(s) (CPT 06361) Secondary Hip Procedure: Other CPT Code(s)
[2018-11-29] MEDS ORDERED: MAGNESIUM PO SCH (17:15)
[2018-11-29] MEDS ORDERED: [UNRECOGNIZED DRUG - OTHER] PO SCH (17:15)
[2018-11-29] MEDS ORDERED: CALCIUM CARBONATE PO SCH (17:15)
[2018-11-29] MEDS ORDERED: CHOLECALCIFEROL PO SCH (17:15)
[2018-11-29] MEDS ORDERED: ZINC PO SCH (17:15)
[2018-11-29] MEDS ORDERED: FLUTICASONE PROPIONATE 16 GRAM (120 SPRAYS / BOTTLE) ENOS PRN (17:45)
[2018-11-29] MEDS: HYDROcodone-APAP 7.5 MG-325 MG TABLET PO PRN ×2 (20:02→20:32)
[2018-11-29] MEDS: DOCUSATE 100 MG CAPSULE PO SCH (20:03)
[2018-11-29] MEDS: Clindamycin 900mg (Premix) 900 MG/50 ML BAG IV SCH (21:58)
[2018-11-30] MEDS: HYDROcodone-APAP 7.5 MG-325 MG TABLET PO PRN ×4 (00:16→12:37)
[2018-11-30] MEDS: HYDROmorphone 2 MG/1 ML IVP PRN ×3 (00:57→17:41)
[2018-11-30] MEDS: Clindamycin 900mg (Premix) 900 MG/50 ML BAG IV SCH ×2 (04:25→11:04)
[2018-11-30 05:01] LABS: BASOPHILS # (AUTO) 0.01 10*3/UL; BASOPHILS % (AUTO) 0.1 % (0-1); EOSINOPHILS # (AUTO) 0 10*3/UL; EOSINOPHILS % (AUTO) 0 % (0-8); Hematocrit [HCT] 31.8 % (37.0-47.0); Hemoglobin [HGB] 10.2 g/dL (12.0-16.0); LYMPHOCYTES # (AUTO) 0.55 10*3/uL; MEAN CORPUSCULAR HEMOGLOBIN 32.1 PG (27-31); MEAN CORPUSCULAR HGB CONC 32.1 g/dL (33-37); MEAN PLATELET VOLUME 10.1 FL (7.4-12.2); MONOCYTES % (AUTO) 1.9 % (5-15); NEUTROPHILS % (AUTO) 92.6 % (50-80); RED BLOOD COUNT 3.18 10^6/uL (4.20-5.40)
[2018-11-30 05:07] LABS: BLOOD UREA NITROGEN 21 mg/dL (7-22); BUN/CREATININE RATIO 26.25 (6-20)
[2018-11-30 05:29] LABS: PLATELET MORPHOLOGY COMMENT NORMAL MORPHOLOGY (NORM); RBC MORPHOLOGY COMMENT NORMAL MORPHOLOGY (NORM); WBC MORPHOLOGY COMMENT NORMAL MORPHOLOGY (NORM)
--- NOTE | 2018-11-30 07:37 | CRNA.PROGR ---
Anesthesia Note - Progress Notes Anesthesia Progress Note: Sitting up in bed. States pain is controlled. No nausea today. Chiang still in. Still on O2 nasally. Vital Signs - Last Taken Temperature 97.2 F 11/30/18 07:28 Pulse Rate 61 11/30/18 07:28 Respiratory Rate 18 11/30/18 07:28 Blood Pressure 130/72 11/30/18 07:28 Pulse Ox 98 11/30/18 07:28 Blood loss was minimal. She was anemic prior to this hip fracture. No apparent anesthetic difficulties.
[2018-11-30] MEDS: ENOXAPARIN SODIUM 40 MG/0.4 ML SYRINGE SUBCUT SCH (08:48)
[2018-11-30] MEDS: buPROPion XL Tab 150 MG TAB PO SCH (08:49)
[2018-11-30] MEDS: Calcium/Vit D 600mg/400u Tab 1 TAB TABLET PO SCH (08:49)
[2018-11-30] MEDS: DOCUSATE 100 MG CAPSULE PO SCH ×2 (08:49→22:13)
[2018-11-30] MEDS ORDERED: CHOLECALCIFEROL 1000 IU TABLET PO ONE (09:18)
[2018-11-30] MEDS: Lactated Ringers 1,000 ML PRIMARY IV SCH ×2 (11:03→17:17)
--- NOTE | 2018-11-30 13:08 | ORTHO.PROG ---
Last Taken Vital Signs: Vital Signs - Last Taken Temperature 97.2 F 11/30/18 11:24 Pulse Rate 67 11/30/18 11:24 Respiratory Rate 18 11/30/18 11:24 Blood Pressure 104/60 11/30/18 11:24 Pulse Ox 95 11/30/18 11:24 Subjective: Patient doing well this morning, pain controlled Objective: Examination shows the dressing is in place very minimal swelling. No bruising or ecchymosis. Motor and sensory exam is nonfocal on the involved left lower extremity. Laboratory Results 11/30/18 11/30/18 04:28 04:28 WBC 10.37 RBC 3.18 L Hgb 10.2 L Hct 31.8 L MCV 100.0 H MCH 32.1 H MCHC 32.1 L RDW Std Deviation 44.8 RDW Coeff of Juan 12.5 Plt Count 172 MPV 10.1 Immature Gran % (Auto) 0.1 Neut % (Auto) 92.6 H Lymph % (Auto) 5.3 L Maury % (Auto) 1.9 L Eos % (Auto) 0 Baso % (Auto) 0.1 Immature Gran # (Auto) 0.01 Neut # (Auto) 9.60 Lymph # (Auto) 0.55 Maury # (Auto) 0.20 L Eos # (Auto) 0 Baso # (Auto) 0.01 WBC Morphology Comment Normal morphology Plt Morphology Comment Normal morphology RBC Morph Comment Normal morphology Sodium 139 Potassium 4.7 Chloride 106 Carbon Dioxide 28 Anion Gap 5 BUN 21 Creatinine 0.8 Estimated GFR > 60 BUN/Creatinine Ratio 26.25 H Glucose 126 H Calculated Osmolality 292.0 Calcium 10.0 Vital Signs (24 hrs) 11/29/18 16:14 11/29/18 16:18 11/29/18 16:20 Temperature 97.8 F Pulse Rate 66 59 L 60 Pulse Rate [Pulse Oximeter] Respiratory Rate 16 14 14 Blood Pressure 95/53 104/61 109/60 Blood Pressure [Left Arm] Pulse Ox 97 97 97 11/29/18 16:30 11/29/18 16:40 11/29/18 16:50 Temperature 97.1 F 97.4 F Pulse Rate 63 63 Pulse Rate [Pulse Oximeter] 69 Respiratory Rate 14 14 17 Blood Pressure 96/78 120/58 Blood Pressure [Left Arm] 109/76 Pulse Ox 97 97 90 11/29/18 17:00 11/29/18 17:15 11/29/18 17:30 Temperature 97.6 F 97.6 F 96.8 F Pulse Rate Pulse Rate [Pulse Oximeter] 60 70 66 Respiratory Rate 17 17 17 Blood Pressure Blood Pressure [Left Arm] 122/69 126/77 132/70 Pulse Ox 98 92 92 11/29/18 18:00 11/29/18 18:41 11/29/18 21:00 Temperature 98.3 F 97.0 F 97.3 F Pulse Rate Pulse Rate [Pulse Oximeter] 69 73 68 Respiratory Rate 18 18 18 Blood Pressure Blood Pressure [Left Arm] 123/87 136/78 118/65 Pulse Ox 95 93 95 11/30/18 00:19 11/30/18 04:37 11/30/18 05:02 Temperature 97.0 F 97.8 F Pulse Rate Pulse Rate [Pulse Oximeter] 67 69 Respiratory Rate 18 18 Blood Pressure Blood Pressure [Left Arm] 109/68 120/69 Pulse Ox 96 97 93 11/30/18 07:00 11/30/18 07:28 11/30/18 11:24 Temperature 97.2 F 97.2 F Pulse Rate Pulse Rate [Pulse Oximeter] 61 61 67 Respiratory Rate 18 18 18 Blood Pressure Blood Pressure [Left Arm] 130/72 104/60 Pulse Ox 98 95 Assessment: Left hip fracture with closed reduction percutaneous pinning Anemia Plan: Patient will be toe-touch weightbearing with a walker just enough to balance herself I probably say no more than 5 pounds. Continue with protection of the hip. DVT prophylaxis, pain control, physical therapy and occupational therapy
[2018-11-30] MEDS: oxyCODONE/APAP 7.5/325 Tab 1 TAB TAB PO PRN ×3 (14:04→22:31)
--- NOTE | 2018-11-30 14:36 | PTI REPORT ---
Thank you for the referral of Anais Cade. She was seen on 11/30/18 for an inpatient evaluation status post left hip fracture. SUBJECTIVE: The patient is a 63-year-old female. The patient reports that she lives in [place], [place], but she has a place in town where she stays. The patient lives by herself. She has a few stairs to get into her home. 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 The patient reports she fell on Wednesday. The patient reports she is a little bit confused with dates. PAST MEDICAL HISTORY: Past medical history can be found in the patient's medical record. OBJECTIVE FINDINGS: General observations: The patient has a Chiang catheter. The patient is on 2 liters of oxygen. The patient is unable to move left lower extremity by herself. The patient's oxygen saturation was between 88-92%. Blood pressure was 125/70s. The patient is toe touch weight-bearing. Bed mobility: The patient requires min assist x1 for supine to sit transfer to edge of bed. The patient requires stand by assist for edge of bed balance. ASSESSMENT: The patient is a 63-year-old female status post left hip fracture. The patient will benefit from skilled therapy in order to improve strength, functional mobility, and endurance. The patient's prognosis for therapy is good. Problem List: Decreased strength Decreased functional mobility Short-Term Goals: To be met by discharge from inpatient: Patient will be independent with all transfers while abiding by toe touch weight-bearing precautions with walker. Patient will be able to ambulate 150 feet with walker, toe touch weight-bearing. Patient will be able to tolerate 15 minutes of activity. Long-Term Goals: To be met following discharge from inpatient: Patient will benefit from outpatient physical therapy. TREATMENT PLAN: Patient will be seen B.I.D during the week and one time per day over the weekend as an inpatient for therapeutic exercise, functional activity, neuromuscular reeducation, and gait training. INITIAL TREATMENT: Treatment today consisted of the initial evaluation followed by seated edge of bed transfer. The patient felt dizzy and ill to her stomach, so the patient transferred from sit to supine with min assist x1. The patient was left in the care of her nurses. [place]
--- NOTE | 2018-11-30 15:21 | PT.PROG ---
Progress Note Progress Note: S: Pt stated that she is feeling dizzy this afternoon but feeling better than this a.m. O: Pt ambulated w/ FWW and CGA x8ft w/ attention to NWB on RLE. Completed transfer from supine to sitting in bed and standing to sitting in recliner. A: Pt fatigued quickly w/ amb. She did become dizzy w/ prolonged standing. To lerated today's interventions w/o any adverse affects. P: Continue w/ interventions per POC to return to prior level of function.
--- NOTE | 2018-11-30 16:15 | PDOC(PROG) ---
Date of Service: 11/30/18 Time of Service: 16:05 Interval History: seen earlier today. no chest pain, SOB, or vomiting. pain in hip. controlled with medications. patient was worried about persistent hypoxia. Objective : Data - Labs CBC and BMP: 11/30/18 04:28 11/30/18 04:28 Objective : Exam - General General Appearance: No Acute Distress, Cooperative Additional General Exam Details: Vital Signs - Last Taken Temperature 97.2 F 11/30/18 11:24 Pulse Rate 67 11/30/18 11:24 Respiratory Rate 18 11/30/18 11:24 Blood Pressure 104/60 11/30/18 11:24 Pulse Ox 95 11/30/18 11:24 - Eye Eye Exam: No Scleral Icterus - ENT ENT Exam: Mucous Membranes Moist - Neck Neck Exam: JVP is not Raised - Respiratory Respiratory Exam: Clear to Auscultation - Bilaterally, Breathing Non Labored - Cardiovascular Cardiovascular Exam: RRR, No Murmur, No Clicks, No Gallops, No Rubs, No JVD - GI/Abdominal GI/Abdominal Exam: Normal Bowel Sounds, Non Tender, Non Distended, Soft - Extremities Extremities Exam: No Clubbing Present, No Edema Present, No Cyanosis Present Additional Extremities Exam Details: left hip incision is dressed, C/D/I - Neurological Neurological Exam: Alert, Oriented x 3, No Facial Droop, Speech Intact / Clear - Psychiatric Psychiatric Exam: Normal Affect, Normal Mood Assessment and Plan - Patient Problems (1) Closed left hip fracture Current Visit: Yes Status: Acute Code(s): S72.002A - Fracture of unspecified part of neck of left femur, initial encounter for closed fracture Qualifiers: Encounter type: initial encounter Qualified Code(s): S72.002A - Fracture of unspecified part of neck of left femur, initial encounter for closed fracture (2) Status post placement of cardiac pacemaker Current Visit: Yes Status: Acute Code(s): Z95.0 - Presence of cardiac pacemaker (3) Hypertension Current Visit: Yes Status: Acute Code(s): I10 - Essential (primary) hypertension Qualifiers: Hypertension type: essential hypertension Qualified Code(s): I10 - Essential (primary) hypertension (4) Nicotine dependence Current Visit: Yes Status: Acute Code(s): F17.200 - Nicotine dependence, unspecified, uncomplicated Qualifiers: Nicotine product type: other Substance use status: uncomplicated Qualified Code(s): F17.290 - Nicotine dependence, other tobacco product, uncomplicated (5) Aortic aneurysm Current Visit: No Status: Chronic Qualifiers: Aortic location: thoracic aorta Presence of rupture: without rupture Qualified Code(s): I71.2 - Thoracic aortic aneurysm, without rupture - Assessment / Plan Additional Assessment/Plan Details: DVT prophylaxis, I would recommend 28-35 days. PT and OT, TTWB on right lower extremity no change in home medications Incentive spirometry for atelectasis get chest X-ray, suspect atelectasis
[2018-11-30] MEDS ORDERED: SCOPOLAMINE HYDROBROMIDE 1.5 MG - 1 EACH PATCH TRANSDERM ONE (17:46)
[2018-11-30] MEDS ORDERED: diphenhydrAMINE 50 MG/1 ML VIAL IVP ONE (17:49)
[2018-11-30 18:15] LABS: BASOPHILS # (AUTO) 0.01 10*3/UL; BASOPHILS % (AUTO) 0.1 % (0-1); EOSINOPHILS # (AUTO) 0.34 10*3/UL; EOSINOPHILS % (AUTO) 2.7 % (0-8); Hematocrit [HCT] 29.8 % (37.0-47.0); Hemoglobin [HGB] 9.6 g/dL (12.0-16.0); LYMPHOCYTES # (AUTO) 1.63 10*3/uL; MEAN CORPUSCULAR HEMOGLOBIN 32.8 PG (27-31); MEAN CORPUSCULAR HGB CONC 32.2 g/dL (33-37); MEAN CORPUSCULAR VOLUME 101.7 FL (81-99); MEAN PLATELET VOLUME 9.3 FL (7.4-12.2); MONOCYTES # (AUTO) 0.54 10*3/UL (0.3-0.8); MONOCYTES % (AUTO) 4.3 % (5-15); NEUTROPHILS # (AUTO) 10.03 10*3/UL; NEUTROPHILS % (AUTO) 79.7 % (50-80); PLATELET MORPHOLOGY COMMENT NORMAL MORPHOLOGY (NORM); RBC MORPHOLOGY COMMENT NORMAL MORPHOLOGY (NORM); RED BLOOD COUNT 2.93 10^6/uL (4.20-5.40); WBC MORPHOLOGY COMMENT NORMAL MORPHOLOGY (NORM)
--- NOTE | 2018-11-30 18:24 | EKG ---
[address] [address] Measurements Intervals [place] Rate: 60 P: 112 UT: 186 QRS: 52 QRSD: 85 T: 49 QT: 423 QTc: 423 Interpretive Statements ELECTRONIC ATRIAL PACEMAKER ABNORMAL RHYTHM ECG Compared to ECG 11/29/2018 00:50:38 Sinus rhythm no longer present Electronically Signed On 12-01-18 16:16:05 MDT by Anthony Palmer [email or web address]
--- NOTE | 2018-11-30 18:28 | DI ---
AP CHEST X-RAY, 11/30/2018 4:02 PM : Clinical History: Hypoxia. Previous Exam: None at this facility. Soft Tissues: No acute soft tissue abnormality. Dual-chamber pacemaker with both leads in the appropr iate position. Bones: Normal. Heart: Cardiomegaly with CHF. There is also pulmonary venous hypertension and pulmonary arterial hype rtension. Malika B lines are present and these are new since the prior exam indicating interstitial e rosa isela. Lungs: No infiltrates. Effusion(s): Small left pleural effusion. Mediastinum: Normal mediastinum. Nodules: No pulmonary nodules. Readin. Cardiomegaly with CHF and a small left pleural effusion. 2. There is pulmonary venous hypertension and this is typically seen with mitral valvular disease.
[2018-11-30] MEDS ORDERED: ASPIRIN 81 MG (BABY) CHEWABLE TABLET ONE (18:40)
[2018-11-30] MEDS ORDERED: ASPIRIN 81 MG (BABY) CHEWABLE TABLET PO SCH (18:45)
--- NOTE | 2018-11-30 20:12 | DI ---
CT ANGIOGRAM OF THE CHEST, 11/30/2018 6:21 PM : Clinical History: Postop hypoxia. Previous Exam: 03/15/2015. Technique: Scans from base of neck to lung bases with IV contrast. Bolus tracking protocol was used f or timing the injection. Non-MIPS and MIPS sagittal/coronal images generated. IV Contrast: 65 mL of Isovue 300. Base of Neck: Normal. Nodes: Normal axillary, supraclavicular, mediastinal, and hilar lymph nodes. Heart: Marked right heart enlargement. The right ventricular chamber size is larger than the left dariana tricular chamber. There is left ventricular dilatation and right atrial dilatation. Scattered calcifi cations in the proximal third of the LAD. Aorta: Aneurysm of the ascending aorta with AP and transverse dimensions measuring 47 mm. This has no t changed since the previous exam. Pulmonary Arteries: No pulmonary embolism or pulmonary embolism with infarction. There is marked pulm onary arterial hypertension. Lungs: Minimal bibasilar atelectasis. Significant increase in Malika A and Malika B lines since the p revious CT scan consistent with acute interstitial pulmonary edema secondary to CHF. Effusion(s): Very small bilateral pleural effusions. Nodules: None. Bony Structures: Normal visualized portions of ribs, sternum, scapulae, clavicles, and shoulders. Mid thoracic osteoporotic compression fractures with a developing gibbus type deformity. Severe osteopor osis. Limited Upper Abdomen: Normal adrenal glands and spleen. Normal limited views of liver and pancreas. READIN. No evidence of pulmonary embolism or pulmonary embolism with infarction. There is marked pulmonar y arterial hypertension. 2. Right atrial dilatation. Right and left ventricular dilatation with the right ventricle larger th an the left. Interstitial pulmonary edema secondary to CHF. 3. No acute infiltrate indicating pneumonia. Small bilateral pleural effusions. 4. Ascending aortic aneurysm measuring 47 mm in AP and transverse dimensions with no change since th e prior exam.
[2018-11-30] MEDS ORDERED: FUROSEMIDE 10 MG/1 ML - 4 ML IVP ONE (22:22)
[2018-12-01 05:19] LABS: BASOPHILS # (AUTO) 0.02 10*3/UL; BASOPHILS % (AUTO) 0.2 % (0-1); EOSINOPHILS % (AUTO) 5.8 % (0-8); Hematocrit [HCT] 31.4 % (37.0-47.0); Hemoglobin [HGB] 10.1 g/dL (12.0-16.0); MEAN CORPUSCULAR HEMOGLOBIN 32.7 PG (27-31); MEAN CORPUSCULAR HGB CONC 32.2 g/dL (33-37); MEAN CORPUSCULAR VOLUME 101.6 FL (81-99); MEAN PLATELET VOLUME 10.3 FL (7.4-12.2); MONOCYTES # (AUTO) 0.46 10*3/UL (0.3-0.8); MONOCYTES % (AUTO) 4.4 % (5-15); NEUTROPHILS # (AUTO) 7.37 10*3/UL; NEUTROPHILS % (AUTO) 71.2 % (50-80); RED BLOOD COUNT 3.09 10^6/uL (4.20-5.40)
[2018-12-01 05:25] LABS: BUN/CREATININE RATIO 20.9 (6-20)
[2018-12-01 05:31] LABS: PLATELET MORPHOLOGY COMMENT NORMAL MORPHOLOGY (NORM); RBC MORPHOLOGY COMMENT NORMAL MORPHOLOGY (NORM); WBC MORPHOLOGY COMMENT NORMAL MORPHOLOGY (NORM)
[2018-12-01] MEDS: ENOXAPARIN SODIUM 40 MG/0.4 ML SYRINGE SUBCUT SCH (08:11)
[2018-12-01] MEDS: CHOLECALCIFEROL 1000 IU TABLET PO SCH (08:11)
[2018-12-01] MEDS: buPROPion XL Tab 150 MG TAB PO SCH (08:12)
[2018-12-01] MEDS: oxyCODONE/APAP 7.5/325 Tab 1 TAB TAB PO PRN ×4 (08:12→20:48)
[2018-12-01] MEDS: Calcium/Vit D 600mg/400u Tab 1 TAB TABLET PO SCH (08:12)
[2018-12-01] MEDS: DOCUSATE 100 MG CAPSULE PO SCH ×2 (08:12→20:48)
[2018-12-01] MEDS ORDERED: POTASSIUM CHLORIDE 20 MEQ TAB PO ONE (09:21)
[2018-12-01] MEDS ORDERED: FUROSEMIDE 10 MG/1 ML - 4 ML IVP ONE (09:24)
--- NOTE | 2018-12-01 10:48 | PT.PROG ---
Progress Note Progress Note: S. patient stated that she is feeling a little better this morning, she agreed to get to the chair. O. patient ambulated 10 feet to the chair where she was left with alarm and call light. A. patient's o2 dropped to 78 during ambulation, she would continue to benefit from skilled therapy to increase strength and mobility at this time. P. Continue POC.
--- NOTE | 2018-12-01 11:53 | ORTHO.PROG ---
Last Taken Vital Signs: Vital Signs - Last Taken Temperature 98.7 F 12/01/18 10:59 Pulse Rate 72 12/01/18 10:59 Respiratory Rate 18 12/01/18 10:59 Blood Pressure 83/53 12/01/18 10:59 Pulse Ox 93 12/01/18 10:59 Subjective: Patient doing well on Percocet with pain control. Patient with allergic reaction to hydromorphone Objective: Left leg dressing small area of blood. No significant fluctuance or evidence of a hematoma seroma. Motor and sensory exam nonfocal. Mild shortening of left leg but rotation anatomic compared to the other side. Patient with x-ray CT scan no evidence of a pulmonary embolism. Laboratory Results 11/30/18 11/30/18 11/30/18 18:05 18:05 23:03 WBC 12.58 H RBC 2.93 L Hgb 9.6 L Hct 29.8 L MCV 101.7 H MCH 32.8 H MCHC 32.2 L RDW Std Deviation 46.2 RDW Coeff of Juan 12.8 Plt Count 161 MPV 9.3 Immature Gran % (Auto) 0.2 Neut % (Auto) 79.7 Lymph % (Auto) 13.0 Sharp % (Auto) 4.3 L Eos % (Auto) 2.7 Baso % (Auto) 0.1 Immature Gran # (Auto) 0.03 Neut # (Auto) 10.03 Lymph # (Auto) 1.63 Sharp # (Auto) 0.54 Eos # (Auto) 0.34 Baso # (Auto) 0.01 WBC Morphology Comment Normal morphology Plt Morphology Comment Normal morphology RBC Morph Comment Normal morphology Sodium Potassium Chloride Carbon Dioxide Anion Gap BUN Creatinine Estimated GFR BUN/Creatinine Ratio Glucose Calculated Osmolality Calcium Troponin I < 0.012 < 0.012 NT-Pro-B Natriuret Pep 12/01/18 12/01/18 12/01/18 04:34 04:34 04:34 WBC 10.36 RBC 3.09 L Hgb 10.1 L Hct 31.4 L MCV 101.6 H MCH 32.7 H MCHC 32.2 L RDW Std Deviation 46.7 RDW Coeff of Juan 12.9 Plt Count 177 MPV 10.3 Immature Gran % (Auto) 0.1 Neut % (Auto) 71.2 Lymph % (Auto) 18.3 Sharp % (Auto) 4.4 L Eos % (Auto) 5.8 Baso % (Auto) 0.2 Immature Gran # (Auto) 0.01 Neut # (Auto) 7.37 Lymph # (Auto) 1.90 Sharp # (Auto) 0.46 Eos # (Auto) 0.60 Baso # (Auto) 0.02 WBC Morphology Comment Normal morphology Plt Morphology Comment Normal morphology RBC Morph Comment Normal morphology Sodium 142 Potassium 3.7 L Chloride 101 Carbon Dioxide 36 H Anion Gap 5 BUN 23 H Creatinine 1.1 Estimated GFR 50 BUN/Creatinine Ratio 20.90 H Glucose 82 Calculated Osmolality 296.0 H Calcium 10.2 Troponin I < 0.012 NT-Pro-B Natriuret Pep 12/01/18 04:34 WBC RBC Hgb Hct MCV MCH MCHC RDW Std Deviation RDW Coeff of Juan Plt Count MPV Immature Gran % (Auto) Neut % (Auto) Lymph % (Auto) Sharp % (Auto) Eos % (Auto) Baso % (Auto) Immature Gran # (Auto) Neut # (Auto) Lymph # (Auto) Sharp # (Auto) Eos # (Auto) Baso # (Auto) WBC Morphology Comment Plt Morphology Comment RBC Morph Comment Sodium Potassium Chloride Carbon Dioxide Anion Gap BUN Creatinine Estimated GFR BUN/Creatinine Ratio Glucose Calculated Osmolality Calcium Troponin I NT-Pro-B Natriuret Pep 1020 H Vital Signs (24 hrs) 11/30/18 16:47 11/30/18 17:15 11/30/18 18:29 Temperature 97 F Pulse Rate Pulse Rate [Lying] 60 Pulse Rate [Pulse Oximeter] 62 60 Pulse Rate [Sitting] 67 Pulse Rate [Standing] 89 Respiratory Rate 18 12 Blood Pressure [Left Arm] 110/59 127/76 Blood Pressure [Lying] 128/71 Blood Pressure [Sitting] 136/78 Blood Pressure [Standing] 122/82 Pulse Ox 95 97 11/30/18 19:00 11/30/18 21:00 12/01/18 00:23 Temperature 97.6 F 97.8 F Pulse Rate 60 Pulse Rate [Lying] Pulse Rate [Pulse Oximeter] 60 60 Pulse Rate [Sitting] Pulse Rate [Standing] Respiratory Rate 16 16 Blood Pressure [Left Arm] 132/80 119/74 Blood Pressure [Lying] Blood Pressure [Sitting] Blood Pressure [Standing] Pulse Ox 100 98 12/01/18 01:29 12/01/18 03:00 12/01/18 03:30 Temperature Pulse Rate 60 60 Pulse Rate [Lying] Pulse Rate [Pulse Oximeter] Pulse Rate [Sitting] Pulse Rate [Standing] Respiratory Rate Blood Pressure [Left Arm] Blood Pressure [Lying] Blood Pressure [Sitting] Blood Pressure [Standing] Pulse Ox 93 12/01/18 03:57 12/01/18 06:47 12/01/18 07:00 Temperature 98.1 F 97.5 F Pulse Rate Pulse Rate [Lying] Pulse Rate [Pulse Oximeter] 60 60 60 Pulse Rate [Sitting] Pulse Rate [Standing] Respiratory Rate 11 L 18 18 Blood Pressure [Left Arm] 110/75 143/90 Blood Pressure [Lying] Blood Pressure [Sitting] Blood Pressure [Standing] Pulse Ox 93 94 12/01/18 10:59 Temperature 98.7 F Pulse Rate Pulse Rate [Lying] Pulse Rate [Pulse Oximeter] 72 Pulse Rate [Sitting] Pulse Rate [Standing] Respiratory Rate 18 Blood Pressure [Left Arm] 83/53 Blood Pressure [Lying] Blood Pressure [Sitting] Blood Pressure [Standing] Pulse Ox 93 Assessment: Left femoral neck fracture Anemia Evidence of right sided fluid overload with hypoxemia requiring supplemental oxygen at the current time. Plan: Continue with physical therapy and occupational therapy. Deep vein thromboses with pneumatic sequentials and Lovenox. Pain control seems to be good with Percocet at the current time.
[2018-12-01] MEDS ORDERED: FUROSEMIDE 10 MG/1 ML - 2 ML VIAL IVP ONE (15:45)
--- NOTE | 2018-12-01 15:51 | PDOC(PROG) ---
Date of Service: 12/01/18 Time of Service: 15:46 Interval History: Patient seen and evaluated a little earlier today. No chest pain, shortness breath, nausea or vomiting. Still on 3 L oxygen. Workup negative for myocardial infarction and PE, but notable for pulmonary arterial hypertension. Patient had never been told she had that before. Bilateral effusions and I suspect that she has acute on chronic cor pulmonale and may have some diastolic dysfunction. Probably too much fluid in the setting of surgery. Objective : Data - Labs CBC and BMP: 12/01/18 04:34 12/01/18 04:34 Additional Lab Results: 11/30/18 11/30/18 12/01/18 18:05 23:03 04:34 Calcium 10.2 Troponin I < 0.012 < 0.012 NT-Pro-B Natriuret Pep 12/01/18 12/01/18 04:34 04:34 Calcium Troponin I < 0.012 NT-Pro-B Natriuret Pep 1020 H Objective : Exam - General General Appearance: No Acute Distress, Cooperative Additional General Exam Details: Vital Signs - Last Taken Temperature 98.7 F 12/01/18 10:59 Pulse Rate 72 12/01/18 10:59 Respiratory Rate 18 12/01/18 10:59 Blood Pressure 83/53 12/01/18 10:59 Pulse Ox 93 12/01/18 10:59 - Eye Eye Exam: No Scleral Icterus - ENT ENT Exam: Mucous Membranes Moist - Respiratory Respiratory Exam: Clear to Auscultation - Bilaterally, Breathing Non Labored - Cardiovascular Cardiovascular Exam: RRR, No Murmur, No Clicks, No Gallops, No Rubs, No JVD - GI/Abdominal GI/Abdominal Exam: Normal Bowel Sounds, Non Tender, Non Distended, Soft - Extremities Extremities Exam: No Clubbing Present, No Edema Present, No Cyanosis Present Additional Extremities Exam Details: Incision on left hip is dressed, dressing is clean, dry, intact - Neurological Neurological Exam: Alert, Oriented x 3, No Facial Droop, Speech Intact / Clear, Moves All Extremities Equally - Psychiatric Psychiatric Exam: Normal Affect, Normal Mood Assessment and Plan - Patient Problems (1) Fluid overload Current Visit: Yes Status: Acute Code(s): E87.70 - Fluid overload, unspecified Qualifiers: Hypervolemia type: other Qualified Code(s): E87.79 - Other fluid overload (2) Pulmonary arterial hypertension Current Visit: Yes Status: Acute Code(s): I27.21 - Secondary pulmonary arterial hypertension (3) Closed left hip fracture Current Visit: Yes Status: Acute Code(s): S72.002A - Fracture of unspecified part of neck of left femur, initial encounter for closed fracture Qualifiers: Encounter type: initial encounter Qualified Code(s): S72.002A - Fracture of unspecified part of neck of left femur, initial encounter for closed fracture (4) Status post placement of cardiac pacemaker Current Visit: Yes Status: Acute Code(s): Z95.0 - Presence of cardiac pacemaker (5) Hypertension Current Visit: Yes Status: Acute Code(s): I10 - Essential (primary) hypertension Qualifiers: Hypertension type: essential hypertension Qualified Code(s): I10 - Essential (primary) hypertension (6) Nicotine dependence Current Visit: Yes Status: Acute Code(s): F17.200 - Nicotine dependence, unspecified, uncomplicated Qualifiers: Nicotine product type: other Substance use status: uncomplicated Qualified Code(s): F17.290 - Nicotine dependence, other tobacco product, uncomplicated (7) Aortic aneurysm Current Visit: No Status: Chronic Qualifiers: Aortic location: thoracic aorta Presence of rupture: without rupture Qualified Code(s): I71.2 - Thoracic aortic aneurysm, without rupture - Assessment / Plan Additional Assessment/Plan Details: The patient feels much better. I think overall yesterday was really related to an adverse reaction to Dilaudid. Added to her allergy list. CT scan on my view showed pleural effusions, and radiologist felt it was consistent with pulmonary arterial hypertension. I spoke with the patient's zipper setter lockstitch. They will arrange an outpatient echocardiogram and will also arrange a heart catheterization with measurement of right heart pressures as well. Likely this is due to underlying emphysema. Negative for pulmonary emboli as an etiology. Continue PT and OT. DVT/PE prophylaxis 28-35 days would be recommended. Toe-touch weightbearing as per orthopedics Pain medications for pain control. Continue diuresis, check chest x-ray in a.m. and also hopefully convert to by mouth Lasix tomorrow. Potassium replacement in the setting of diuretic therapy Discussed with orthopedics, also with the patient's zipper setter lockstitch.
[2018-12-02 00:40] VITALS: RESP 20
[2018-12-02] MEDS: oxyCODONE/APAP 7.5/325 Tab 1 TAB TAB PO PRN ×3 (04:33→12:44)
[2018-12-02 05:39] LABS: BASOPHILS # (AUTO) 0.04 10*3/UL; BASOPHILS % (AUTO) 0.5 % (0-1); EOSINOPHILS % (AUTO) 8.4 % (0-8); Hematocrit [HCT] 36.6 % (37.0-47.0); Hemoglobin [HGB] 11.8 g/dL (12.0-16.0); LYMPHOCYTES # (AUTO) 2.06 10*3/uL; MEAN CORPUSCULAR HEMOGLOBIN 32.4 PG (27-31); MEAN CORPUSCULAR HGB CONC 32.2 g/dL (33-37); MEAN CORPUSCULAR VOLUME 100.5 FL (81-99); MEAN PLATELET VOLUME 10.3 FL (7.4-12.2); MONOCYTES # (AUTO) 0.52 10*3/UL (0.3-0.8); MONOCYTES % (AUTO) 6.2 % (5-15); NEUTROPHILS # (AUTO) 5.03 10*3/UL; NEUTROPHILS % (AUTO) 60.2 % (50-80); RED BLOOD COUNT 3.64 10^6/uL (4.20-5.40)
[2018-12-02 05:43] LABS: PLATELET MORPHOLOGY COMMENT NORMAL MORPHOLOGY (NORM); RBC MORPHOLOGY COMMENT NORMAL MORPHOLOGY (NORM); WBC MORPHOLOGY COMMENT NORMAL MORPHOLOGY (NORM)
[2018-12-02 06:00] LABS: BUN/CREATININE RATIO 27.27 (6-20)
[2018-12-02] MEDS: Calcium/Vit D 600mg/400u Tab 1 TAB TABLET PO SCH (08:10)
[2018-12-02] MEDS: CHOLECALCIFEROL 1000 IU TABLET PO SCH (08:10)
[2018-12-02] MEDS: DOCUSATE 100 MG CAPSULE PO SCH (08:10)
[2018-12-02] MEDS: buPROPion XL Tab 150 MG TAB PO SCH (08:10)
[2018-12-02] MEDS: ENOXAPARIN SODIUM 40 MG/0.4 ML SYRINGE SUBCUT SCH (08:11)
--- NOTE | 2018-12-02 08:21 | DI ---
PA /LATERAL CHEST, 12/02/2018 7:00 AM : Clinical History: Fluid overload. Pleural effusions. Previous Exam: 01/14/2018; 11/30/2018. Soft Tissues: No acute soft tissue abnormality. Bones: Osteoporosis. Old mid thoracic compression fractures. Heart: Cardiomegaly. Similar in appearance to the prior exam. CHF and pulmonary venous hypertension c hanges have resolved. Lungs: No infiltrates. Centrilobular emphysema. Effusion(s): Small bilateral pleural effusions persist. Mediastinum: Pulmonary arterial hypertension. Readin. Cardiomegaly. CHF has resolved. Small pleural effusions persist. 2. Centrilobular emphysema. 3. Severe osteoporosis.
[2018-12-02 09:29] VITALS: O2SAT 94
[2018-12-02] MEDS ORDERED: Potassium Chloride Tab 10 MEQ TAB PO ONE (09:35)
--- NOTE | 2018-12-02 10:04 | OT.PROG ---
Progress Note Progress Note: S: pt stated that she was wanting to get dressed and was ready for therapy. O: pt completed seated functional dressing of LE dressing independently. pt was able to manage all IV ports and leads while dressing. pt completed STS x1 with MIN A for standing. pt completed around the world exercises, biceps x15 and triceps x15 with green RTB. A: pt tolerated session well and continued therapy with PT. P: continue POC
--- NOTE | 2018-12-02 12:29 | PT.PROG ---
Progress Note Progress Note: S. Patient stated she is feeling much better today. O. Patient ambulated 20 feet to the wheelchair and was wheeled to the therapy gym where she had heat and micro massage to her hip to decrease pain. Patient then performed exercises in the form of; heel slides, quad sets, glute sets, ankle pumps, short arc quads, heel toe raises, seated long arc quads, marches, ball squeezes, clam shells, resisted knee flexion, heel toe raises, all x 10 bilaterally with red thera bands, Patient then performed sit to stands x 10, then ambulated 80 feet to the wheelchair and was wheeled back to her room and was left with call light and alarm. A. Patient tolerated therapy fair, she was able to perform all exercises with no increase in pain or problems. Patient continues to require min assist with transfers and ambulation, she would continue to benefit from skilled therapy to increase strength, endurance, and safety at this time. P. Continue POC.
[2018-12-02 12:58] VITALS: BP 95/50; TEMP 97.2
[2018-12-02] MEDS ORDERED: FUROSEMIDE 20 MG TABLET PO SCH (13:00)
--- NOTE | 2018-12-02 13:36 | ORTHO.PROG ---
Last Taken Vital Signs: Vital Signs - Last Taken Temperature 97.2 F 12/02/18 12:52 Pulse Rate 64 12/02/18 12:52 Respiratory Rate 20 12/02/18 12:52 Blood Pressure 95/50 12/02/18 12:52 Pulse Ox 94 12/02/18 12:52 Subjective: Patient doing well with oral pain medication is feeling much better today. Objective: Dressings small amount of dried blood otherwise clean and dry no evidence of infection no significant fluctuance or swelling. Motor and sensory exam is nonfocal with good pulses brisk refill, popliteal adductor hiatus or thigh pain. Laboratory Results 12/02/18 12/02/18 12/02/18 05:00 05:00 05:00 WBC 8.36 RBC 3.64 L Hgb 11.8 L Hct 36.6 L MCV 100.5 H MCH 32.4 H MCHC 32.2 L RDW Std Deviation 46.1 RDW Coeff of Juan 12.9 Plt Count 214 MPV 10.3 Immature Gran % (Auto) 0.1 Neut % (Auto) 60.2 Lymph % (Auto) 24.6 Irwin % (Auto) 6.2 Eos % (Auto) 8.4 H Baso % (Auto) 0.5 Immature Gran # (Auto) 0.01 Neut # (Auto) 5.03 Lymph # (Auto) 2.06 [place]win # (Auto) 0.52 Eos # (Auto) 0.70 Baso # (Auto) 0.04 WBC Morphology Comment Normal morphology Plt Morphology Comment Normal morphology RBC Morph Comment Normal morphology Sodium 140 Potassium 4.1 Chloride 97 L Carbon Dioxide 36 H Anion Gap 7 BUN 30 H Creatinine 1.1 Estimated GFR 50 BUN/Creatinine Ratio 27.27 H Glucose 77 L Calculated Osmolality 294.0 H Calcium 10.4 NT-Pro-B Natriuret Pep 352 H Vital Signs (24 hrs) 12/01/18 15:00 12/01/18 16:08 12/01/18 19:00 Temperature 98.6 F Pulse Rate 68 65 Pulse Rate [Pulse Oximeter] 64 67 Respiratory Rate 18 18 Blood Pressure [Left Arm] 113/65 Pulse Ox 97 12/01/18 20:09 12/02/18 00:39 12/02/18 03:00 Temperature 98.3 F 98.6 F Pulse Rate 60 Pulse Rate [Pulse Oximeter] 67 60 Respiratory Rate 18 20 Blood Pressure [Left Arm] 117/78 120/70 Pulse Ox 98 92 12/02/18 04:47 12/02/18 06:58 12/02/18 07:00 Temperature 98.4 F Pulse Rate 65 Pulse Rate [Pulse Oximeter] 63 Respiratory Rate 20 20 Blood Pressure [Left Arm] 137/85 Pulse Ox 97 12/02/18 09:00 12/02/18 11:00 12/02/18 12:52 Temperature 97.1 F 97.2 F Pulse Rate 60 Pulse Rate [Pulse Oximeter] 65 64 Respiratory Rate 20 20 Blood Pressure [Left Arm] 100/63 95/50 Pulse Ox 94 94 Assessment: Left impacted femoral neck fracture with percutaneous pinning doing well Anemia Hypoxemia improved Plan: Patient is going to be discharged home today she is doing markedly better she has a follow-up with cardiology noted to work up findings are found during her admission. She will be discharged home on Xarelto 10 mg daily for 30 days. She should use her pneumatic sequential devices for DVT prophylaxis in addition. We'll see her back in the office as scheduled.
--- NOTE | 2018-12-02 15:29 | DCSUMMARY ---
Hospitalization Summary Admit Date: 11/29/2018 Discharge Date: 12/02/18 Primary Diagnosis:: left hip fracture status post ORIF Hospital Course: Very pleasant 63-year-old female with prior history of hypertension, COPD, depression (well controlled), amongst other medical issues, who came in after a fall off a bar stool at home while she was eating her dinner. She fractured the femoral head on the left side. She had surgery performed by Dr. Joyner, see his surgical note regarding the procedure. Postoperatively, the patient did very well in terms of pain control. She was much better controlled on oral medications versus IV, and she did have an adverse reaction to dilaudid with diaphoresis, dizziness, and sense of poor feeling. The patient was negative for heart attack and PE. Interestingly, the CT scan is notable for pulmonary hypertension. The patient has not had any prior heart catheterization or ECHO. I spoke with her latex caster and he will arrange an outpatient follow up to evaluate the pulmonary hypertension. DVT prophylaxis was comanaged with orthopedics, and the patient will go home on xarelto. She was diuresed with fluid overload in the setting of the pulmonary hypertension. Diuresis helped and effusions became smaller. Her oxygen went from 3L to 2L with diuresis. We will send the patient home on oxygen for the next month. Today, the patient denies any chest pain, shortness of breath. Assessment and Plan: 1. As per discharge assessments noted 2. Disposition: patient is discharged home 3. Condition on discharge, stable and improved. 4. Diet: regular diet 5. Activities: non weight bearing, left lower extremity 6. Follow-Up: 1. Flory Aldrich in a week 2. orthopedics in about a week or two. 7. Medications at the Time of Discharge: Home Medications Medication Instructions Recorded Confirmed Type Epinephrine [Epipen 2-Dick] 0.3 ml IM ONCE #2 unit 07/02/14 11/28/18 History Fluticasone Propionate [Flonase 2 spr NETTA DAILY PRN #1 bottle 02/18/15 11/28/18 History Allergy Relief] atenolol 25 mg tablet 25 mg PO BID tab 07/09/17 11/28/18 History estradiol 10 mcg vaginal tablet 10 mcg VAGINAL 2XW #24 tab 04/08/18 11/28/18 Rx bupropion HCl XL 150 mg 24 hr 150 mg PO QAM #30 tab 07/11/18 11/28/18 Rx tablet, extended release zaleplon 5 mg capsule 5 mg PO QHS PRN #90 tab 07/11/18 11/28/18 Rx pantoprazole 40 mg tablet,delayed 40 mg PO QDAY #30 tab 09/21/18 11/28/18 Rx release fluoxetine 20 mg capsule 20 mg PO QD #90 cap 09/29/18 11/28/18 Rx fluoxetine 40 mg capsule 40 mg PO DAILY #90 cap 09/29/18 11/28/18 Rx Cholecalciferol [Vitamin D3] 1,000 iu PO DAILY #90 tab 12/02/18 Rx Furosemide [Lasix] 20 mg PO BID@0700,1300 #60 tab 12/02/18 Rx Potassium Chloride [Klor-Con] 10 meq PO DAILY #30 tab 12/02/18 Rx Rivaroxaban [Xarelto] 10 mg PO DAILY #30 tab 12/02/18 Rx oxyCODONE/APAP 7.5/325 Tab 1 - 2 tab PO Q4H PRN #40 tab 12/02/18 Rx [Percocet 7.5/325 Tab] 8. Time, care, counseling and coordination of care for this discharge is greater than 30 minutes. Exam - Vitals Vital Signs: Vital Signs Oxygen Delivery Method Nasal Cannula Height 5 ft 4 in Weight 151 lb 3.2 oz Vital Signs - Last Taken Temperature 97.2 F 12/02/18 12:52 Pulse Rate 64 12/02/18 12:52 Respiratory Rate 20 12/02/18 12:52 Blood Pressure 95/50 12/02/18 12:52 Pulse Ox 94 12/02/18 12:52 - General General Appearance: No Acute Distress, Cooperative - Eye Eye Exam: POSITIVE: No Scleral Icterus - ENT ENT Exam: POSITIVE: Mucous Membranes Moist - Neck Neck Exam: JVP is not Raised - Respiratory Respiratory Exam: POSITIVE: Clear to Auscultation - Bilaterally, Breathing Non Labored - Cardiovascular Cardiovascular Exam: POSITIVE: RRR, No Murmur, No Clicks, No Gallops, No Rubs, No JVD - GI/Abdominal GI/Abdominal Exam: POSITIVE: Normal Bowel Sounds, Non Tender, Non Distended, Soft - Extremities Extremities Exam: POSITIVE: No Clubbing Present, No Edema Present, No Cyanosis Present Additional Extremities Exam Details: left hip incision is dressed, C/D/I - Neurological Neurological Exam: POSITIVE: Alert, Oriented x 3, No Facial Droop, Speech Intact / Clear, Moves All Extremities Equally - Psychiatric Psychiatric Exam: POSITIVE: Normal Affect, Normal Mood Data Peritnent Studies: 11/30/18 11/30/18 12/01/18 18:05 23:03 04:34 WBC Hgb Hct Plt Count Sodium Potassium Chloride Carbon Dioxide Anion Gap BUN Creatinine Estimated GFR Glucose Calculated Osmolality Calcium Troponin I < 0.012 < 0.012 < 0.012 NT-Pro-B Natriuret Pep 12/01/18 12/02/18 12/02/18 04:34 05:00 05:00 WBC 8.36 Hgb 11.8 L Hct 36.6 L Plt Count 214 Sodium 140 Potassium 4.1 Chloride 97 L Carbon Dioxide 36 H Anion Gap 7 BUN 30 H Creatinine 1.1 Estimated GFR 50 Glucose 77 L Calculated Osmolality 294.0 H Calcium 10.4 Troponin I NT-Pro-B Natriuret Pep 1020 H 12/02/18 05:00 WBC Hgb Hct Plt Count Sodium Potassium Chloride Carbon Dioxide Anion Gap BUN Creatinine Estimated GFR Glucose Calculated Osmolality Calcium Troponin I NT-Pro-B Natriuret Pep 352 H Procedures: [address] [facility]. [facility] [place] [address] PH: DD: [phone] FAX: [phone] ~DIAGNOSTIC IMAGING REPORT~ Patient: Anais Cade : 1955 Sex: F Age: 63 Exam Name: CT CTA Chest Non-[facility] Exam Date: 11/30/18 Report # : [id number] CPT Code: 82975 EMR/MR #: [id number] Ordering: NIELS THOMAS Admiting: NIELS THOMAS DO Primary: Cherri Aldrich MS, ROPE LAYING MACHINE OPERATOR Attending: NIELS THOMAS DO Signed CT ANGIOGRAM OF THE CHEST, 11/30/2018 6:21 PM : Clinical History: Postop hypoxia. Previous Exam: 03/15/2015. Technique: Scans from base of neck to lung bases with IV contrast. Bolus tracking protocol was used for timing the injection. Non-MIPS and MIPS sagittal/coronal images generated. IV Contrast: 65 mL of Isovue 300. Base of Neck: Normal. Nodes: Normal axillary, supraclavicular, mediastinal, and hilar lymph nodes. Heart: Marked right heart enlargement. The right ventricular chamber size is larger than the left ventricular chamber. There is left ventricular dilatation and right atrial dilatation. Scattered calcifications in the proximal third of the LAD. Aorta: Aneurysm of the ascending aorta with AP and transverse dimensions measuring 47 mm. This has not changed since the previous exam. Pulmonary Arteries: No pulmonary embolism or pulmonary embolism with infarction. There is marked pulmonary arterial hypertension. Lungs: Minimal bibasilar atelectasis. Significant increase in Malika A and Malika B lines since the previous CT scan consistent with acute interstitial pulmonary edema secondary to CHF. Effusion(s): Very small bilateral pleural effusions. Nodules: None. Bony Structures: Normal visualized portions of ribs, sternum, scapulae, clavicles, and shoulders. Mid thoracic osteoporotic compression fractures with a developing gibbus type deformity. Severe osteoporosis. Limited Upper Abdomen: Normal adrenal glands and spleen. Normal limited views of liver and pancreas. READIN. No evidence of pulmonary embolism or pulmonary embolism with infarction. There is marked pulmonary arterial hypertension. 2. Right atrial dilatation. Right and left ventricular dilatation with the right ventricle larger than the left. Interstitial pulmonary edema secondary to CHF. 3. No acute infiltrate indicating pneumonia. Small bilateral pleural effusions. 4. Ascending aortic aneurysm measuring 47 mm in AP and transverse dimensions with no change since the prior exam. Dictated By: 11/30/181945 JEANNINE THOMPSON MD. Signed By: 11/30/182011 JEANNINE THOMPSON MD. [address] Medicine. [facility] [place] [address] PH: DD: [phone] FAX: [phone] ~DIAGNOSTIC IMAGING REPORT~ Patient: Anais Cade : 1955 Sex: F Age: 63 Exam Name: XR CXR 2VW PA/LAT Exam Date: 12/02/18 Report # : [id number] CPT Code: 82814 EMR/MR #: [id number] Ordering: NIELS THOMAS Admiting: NIELS THOMAS DO Primary: Cherri Aldrich MS, ROPE LAYING MACHINE OPERATOR Attending: NIELS THOMAS DO Signed PA /LATERAL CHEST, 12/02/2018 7:00 AM : Clinical History: Fluid overload. Pleural effusions. Previous Exam: 01/14/2018; 11/30/2018. Soft Tissues: No acute soft tissue abnormality. Bones: Osteoporosis. Old mid thoracic compression fractures. Heart: Cardiomegaly. Similar in appearance to the prior exam. CHF and pulmonary venous hypertension changes have resolved. Lungs: No infiltrates. Centrilobular emphysema. Effusion(s): Small bilateral pleural effusions persist. Mediastinum: Pulmonary arterial hypertension. Readin. Cardiomegaly. CHF has resolved. Small pleural effusions persist. 2. Centrilobular emphysema. 3. Severe osteoporosis. Dictated By: 12/02/1813 JEANNINE THOMPSON MD. Signed By: 12/02/18 0821 JEANNINE THOMPSON MD. Patient Problems - Patient Problem List (1) S/P ORIF (open reduction internal fixation) fracture Current Visit: Yes Status: Acute Code(s): Z96.7 - Presence of other bone and tendon implants; Z87.81 - Personal history of (healed) traumatic fracture Category: Medical (2) Closed left hip fracture Current Visit: Yes Status: Acute Code(s): S72.002A - Fracture of unspecified part of neck of left femur, initial encounter for closed fracture Qualifiers: Encounter type: initial encounter Qualified Code(s): S72.002A - Fracture of unspecified part of neck of left femur, initial encounter for closed fracture Category: Medical (3) Fluid overload Current Visit: Yes Status: Acute Code(s): E87.70 - Fluid overload, unspecified Qualifiers: Hypervolemia type: other Qualified Code(s): E87.79 - Other fluid overload Category: Medical (4) Pulmonary arterial hypertension Current Visit: Yes Status: Acute Code(s): I27.21 - Secondary pulmonary arterial hypertension Category: Medical (5) Status post placement of cardiac pacemaker Current Visit: Yes Status: Acute Code(s): Z95.0 - Presence of cardiac pacemaker Category: Surgical (6) Hypertension Current Visit: Yes Status: Acute Code(s): I10 - Essential (primary) hypertension Qualifiers: Hypertension type: essential hypertension Qualified Code(s): I10 - Essential (primary) hypertension Category: Medical (7) Nicotine dependence Current Visit: Yes Status: Acute Code(s): F17.200 - Nicotine dependence, unspecified, uncomplicated Qualifiers: Nicotine product type: other Substance use status: uncomplicated Qualified Code(s): F17.290 - Nicotine dependence, other tobacco product, uncomplicated Category: Medical (8) Aortic aneurysm Current Visit: No Status: Chronic Comment: Monitored yearly by Dr. Bray Qualifiers: Aortic location: thoracic aorta Presence of rupture: without rupture Qualified Code(s): I71.2 - Thoracic aortic aneurysm, without rupture Category: Medical
--- NOTE | 2018-12-02 16:17 | PT PM DAY ---
Diagnosis : Left Hip Fracture PM - Physical Therapy S: The patient reports no new changes. O: The patient was seen in her room for physical therapy. Her oxygen saturation drops dramatically when she starts any physical activity. Her nurse has requested that when we do physical activity with her that we turn her oxygen up to 3-4 liters a minute. She did need minimal assist to transfer from supine to sit and to transfer from sit to stand. She ambulated to the doorway and back in her room. A: The patient is touch weight-bearing. Again, her limiting factor seems to be her oxygen saturation during activity. P: Continue seeing patient BID during the week and one time per day over the weekend for transfers, ambulation, and range of motion/strengthening exercises. MTDD
--- NOTE | 2018-12-02 16:42 | OTI REPORT ---
Thank you for the referral of Anais Cade. She was seen on 12/01/18 for an occupational therapy inpatient evaluation status post left hip fracture. SUBJECTIVE: The patient is a 63-year-old female who is being seen today secondary to having a left hip fracture. Prior to admission the patient was independent with all of her ADLs and functional tasks at home. The patient is a nurse on the surgical floor. She reports that she has stools in her kitchen area and she fell off of one because a screw came undone. She ended up fracturing her hip and having to go into surgery. Yesterday we attempted to evaluate the patient, but the patient was so nauseated she was not able to participate. This morning the patient still feels slightly nauseated, but not nearly as bad as yesterday. She has been having trouble with her oxygen saturation staying up. PAST MEDICAL HISTORY: Past medical history can be found in the patient's medical record. OBJECTIVE FINDINGS: Bed mobility: The patient did come from supine to sit and her oxygen levels dropped to 83%. We had to have her do some deep breathing for a minute before we went over adaptive devices. Pain: The patient has a lot of pain when trying to bend over secondary to her hip fracture. Strength: The patient demonstrates upper extremity strength of 4 to 4+/5. She is having a little bit of difficulty with her arms when completing sit to stands and functional transfers. Activities of daily living: The patient was issued a tow bar driver, sock aide, bath sponge, and long handled shoe horn for home. The patient practiced doffing socks using the tow bar driver. She was able to do so with min assist. The patient then donned pants using tow bar driver with increased time. The patient was instructed in use of sock aide and the patient was able to don socks with min assist. There was about four times during dressing tasks that the patient's oxygen was dropping to 82-83% on three liters. She was instructed to do pursed lipped breathing. When she did this her oxygen levels would raise to the low 90s. Transfers: The patient was able to come from sit to stand and walk to chair. Once in chair, the patient's nurse came in and bumped her to 4 liters of oxygen for a minute and then back down to 3 liters. The patient probably needs to increase oxygen when completing activities. ASSESSMENT: The patient would benefit from education on adaptive devices again. She may need a walker tray eventually to get around for meals and different activities as she does live by herself. Problem List: Decreased ability to functionally stand Decreased ability to complete ADLs Short-Term Goals: To be met by discharge from inpatient: Patient will increase strength to 5/5 in her upper extremities. Patient will be able to dress upper and lower extremities independently using adaptive devices. Patient will be able to complete 15 minutes of continuous activity while maintaining oxygen saturation. Long-Term Goals: To be met following discharge from inpatient: Patient will be able to return home, safe and independent per prior level of function. TREATMENT PLAN: Patient will be seen B.I.D during the week and one time per day over the weekend as an inpatient to address the above goals and objectives. INITIAL TREATMENT: Treatment today consisted of the initial evaluation activities only. [place]
[2018-12-03] MEDS ORDERED: Rivaroxaban Tab 10 MG TAB PO SCH (09:00)
[2018-12-03] MEDS ORDERED: Potassium Chloride Tab 10 MEQ TAB PO SCH (09:00)
== END 2018-12-02 15:58 | disposition home or self-care (01) | DRG 482 ==
LOC: ER 21:16 → MED/SURG 23:15 → OPS 11-29 12:38 → MED/SURG 11-29 16:48
PROVIDERS: ADMIT Family Medicine; ATTEND Family Medicine